=== PATIENT | female | born 1955 | race Caucasian/White ===

== ENCOUNTER 2016-07-17 07:37 | Day surgery (SDC) | payer BC ==
[~2016-07-17] VITALS: Ht 162.6 cm; Wt 76.1 kg
[~2016-07-17 07:37] MED LIST: BENI20TA26; TRAZ100 PO; VENL75 PO; ZOLP1TAB32 PO
[2016-07-17] MEDS ORDERED: SODIUM CHLOR 0.9% 1000 ML INJ 1,000 ML IV SCH (09:30)
[2016-07-17] MEDS ORDERED: ZOLP5TAB3 PO (09:36)
[2016-07-17] MEDS ORDERED: ESTR0.5T PO (09:36)
[2016-07-17] MEDS ORDERED: LOSA25TA PO (09:36)
[2016-07-17] MEDS ORDERED: PROG200C PO (09:36)
[2016-07-17] MEDS ORDERED: OMEP40CA2 PO (09:36)
[2016-07-17] MEDS ORDERED: TRAZ100T4 PO (09:36)
[2016-07-17] MEDS ORDERED: VENL75TA PO (09:36)
[2016-07-17] MEDS ORDERED: REGL10TA5 PO (09:36)
[2016-07-17] MEDS ORDERED: LIDOCAINE 1%/EPINEPHrine 1:100,000 SOLN 20 ML VIAL ONE (10:10)
[2016-07-17 10:50] VITALS: BP 135/78; PULSE 76; RESP 16; TEMP 98.2; O2SAT 99
[2016-07-17 11:05] VITALS: BP 101/59; PULSE 91; RESP 18; O2SAT 95
--- NOTE | 2016-07-17 11:55 | RADRPT ---
EXAM DATE/TIME: 07/17/2016 10:23 This report includes an Addendum and supersedes previous reports for this exam. [facility] COMPARISON: No previous studies available for comparison. INDICATIONS : Diagnostic paracentesis. DEVICE(S): 1.) 6 Fr [id number]-zkhedbzy FLUID: Total volume of 500 cc of cloudy, yellow fluid was removed. Fluid was sent for laboratory ordered studies. MEDICAL HISTORY : Hypertension. Gastroesophageal reflux disease. Diabetes mellitus type 2. Cervical cancer. SURGICAL HISTORY : Tonsillectomy. Breast augmentation. ENCOUNTER: Initial ACUITY: 1 day PAIN SCORE: 0/10 LOCATION: Right upper quadrant PROCEDURE: 2.) EKG and oximetry remained stable throughout the procedure. PROCEDURE : 1. CT-guidance for abdominal paracentesis. 2. Paracentesis. The risks, benefits and alternatives to CT-guided paracentesis were explained to the patient in detai l, lay terms including the risk of bleeding and infection. Oral and written informed consent was obt ained. The patient was scanned to select approach for paracentesis. The skin was prepped in sterile fashion . The skin and subcutaneous tissues were infiltrated with Lidocaine solution. A 6 Bulgarian catheter w as introduced to the peritoneal cavity and ascites was collected. Post procedure scanning reveals no evidence of hematoma or other complication. The patient tolerated the procedure well and left the CT suite in good condition. CONCLUSION: Uncomplicated CT Guided paracentesis. Fluid sent for studies including cytology. Silvino Latham MD FACR on July 17, 2016 at 11:53 Board Certified Radiologist. This report was verified electronically. ADDENDUM: I was asked to clarify the clinical history provided above. According to the history provided the pat ient did not have cervical cancer. Jean Miranda MD on September 25, 2016 at 13:03 Board Certified Radiologist. This report was verified electronically.
[2016-07-17 12:28] LABS: PERITONEAL HISTIOCYTES 25 %; PERITONEAL LYMPHS 38 %; PERITONEAL MESOTHELIAL 6 %; PERITONEAL MONOS 5 %; PERITONEAL POLYS(SEGS) 26 %; PERITONEAL WBC 4413 /MM3 (0-10)
[2016-07-22] MEDS ORDERED: HYDR-3288 PO ×2 (16:22→16:25)
== END 2016-07-17 11:20 | disposition home or self-care (01) ==
LOC: HRAD 07:37 → HRIP 07:38 → HRAD 11:20
PROVIDERS: ATTEND Internal Medicine Gastroenterology
DX: R18.8 Other ascites (principal); E11.9 Type 2 diabetes mellitus without complications; I10 Essential (primary) hypertension; K21.9 Gastro-esophageal reflux disease without esophagitis
CPT/HCPCS: 49083; 82042; 82150; 82945; 83615; 84157; 87070; 87205; 89051; C1729; J3010; J7030

== ENCOUNTER 2016-07-21 15:05 | Inpatient (IN) | payer BC ==
[~2016-07-21] VITALS: Ht 162.6 cm; Wt 77.0 kg
[~2016-07-21 15:05] MED LIST changes: -BENI20TA26; +ESTR0.5T PO; +LOSA25TA PO; +OMEP40CA2 PO; +PROG200C PO; +REGL10TA5 PO; -TRAZ100 PO; +TRAZ100T4 PO; -VENL75 PO; +VENL75TA PO; -ZOLP1TAB32 PO; +ZOLP5TAB3 PO
[2016-07-22] MEDS ORDERED: ROPIVACAINE 0.5% PF INJ 30 ML VIAL NB ONE (10:47)
[2016-07-22 12:00] VITALS: BP 112/69; PULSE 79; RESP 16; TEMP 97.8; O2SAT 98
[2016-07-22] MEDS ORDERED: LACTATED RINGER'S 1000 ML INJ 1,000 ML IV ONE (12:00)
[2016-07-22] MEDS ORDERED: ONDANSETRON HCL 4 MG/2 ML VIAL IV PUSH ONE (12:00)
[2016-07-22] MEDS ORDERED: SUGAMMADEX SODIUM 200 MG/2 ML VIAL IV PUSH ONE ×2 (12:00)
[2016-07-22] MEDS ORDERED: PROPOFOL 200 MG/20 ML AMP IV ONE (12:00)
[2016-07-22] MEDS ORDERED: NORMOSOL R INJ 1,000 ML IV ONE (12:00)
[2016-07-22] MEDS ORDERED: VANCOMYCIN HCL 1000 MG VIAL ONE (12:08)
[2016-07-22] MEDS ORDERED: SODIUM CHLORIDE 0.9% INJ 100 ML ONE (12:08)
[2016-07-22] MEDS ORDERED: ACETAMINOPHEN 1000 MG/100 ML VIAL IV ONE ×2 (12:08→12:10)
[2016-07-22] MEDS ORDERED: SODIUM CHLOR 0.9% 250 ML INJ 250 ML ONE (12:08)
[2016-07-22] MEDS ORDERED: ceFAZolin INJ 1,000 MG VIAL ONE (12:08)
[2016-07-22 12:14] LABS: BASOPHIL % 0.1 % (0.0-2.0); EOSINOPHIL % 0.1 % (0.0-4.0); HEMO FLAGS DIFF FINAL; LYMPH % 7.2 % (9.0-44.0); LYMPHOCYTE # 0.9 TH/MM3 (1.0-4.8); MEAN CELL VOLUME 83.7 FL (80.0-100.0); MEAN CORPUSCULAR HEMOGLOBIN 27.5 PG (27.0-34.0); MEAN CORPUSCULAR HGB CONC 32.9 % (32.0-36.0); MONO % 9.8 % (0.0-8.0); NEUT % 82.8 % (16.0-70.0); PLATELET COUNT 400 TH/MM3 (150-450); RED BLOOD COUNT 4.18 MIL/MM3 (4.00-5.30); RED CELL DISTRIBUTION WIDTH 13.2 % (11.6-17.2); WHITE BLOOD COUNT 13.2 TH/MM3 (4.0-11.0)
[2016-07-22] MEDS ORDERED: ceFAZolin 1,000 MG/NS 100 ML IV SCH ×2 (12:15)
[2016-07-22] MEDS ORDERED: VANCOMYCIN HCL 1000 MG ON-CALL/NS 250 ML IV SCH ×2 (12:15)
[2016-07-22] MEDS ORDERED: ACETAMINOPHEN 1000 MG/100 ML VIAL IV SCH (12:15)
[2016-07-22] MEDS ORDERED: SODIUM CHLORID 0.9% 500 ML IV SCH (12:15)
[2016-07-22] MEDS ORDERED: METOPROLOL TARTRATE 25 MG TAB PO PRN (12:15)
[2016-07-22] MEDS: LACTATED RINGER'S 1000 ML IV SCH ×2 (12:15→15:40)
[2016-07-22] MEDS ORDERED: INSULIN HUMAN REGULAR 1,000 UNITS/10 ML VIAL SQ PRN (12:15)
[2016-07-22 12:32] LABS: BICARBONATE 22.2 MEQ/L (21.0-32.0); POTASSIUM 3.5 MEQ/L (3.5-5.1)
[2016-07-22] MEDS ORDERED: FAMOTIDINE 20 MG/2 ML VIAL ONE (12:59)
[2016-07-22] MEDS ORDERED: MIDAZOLAM HCL 5 MG/5 ML VIAL ONE (12:59)
[2016-07-22] MEDS ORDERED: BUPIVACAINE/EPINEPHRINE 0.25% PF 30 ML VIAL ONE (13:11)
[2016-07-22] MEDS ORDERED: fentaNYL CITRATE 250 MCG/5 ML AMP ONE (13:21)
[2016-07-22] MEDS ORDERED: HYDROmorphone HCL PF 2 MG/ML VIAL ONE (13:21)
--- NOTE | 2016-07-22 16:08 | HHI.PR ---
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
[2016-07-22] MEDS ORDERED: Post-op Orders (for Pharmacy) MISC XX ONE (16:15)
[2016-07-22] MEDS ORDERED: NALOXONE HCL 0.4 MG/ML AMP IV PRN (16:15)
[2016-07-22] MEDS ORDERED: MORPHINE SULFATE 4 MG/ML INJ IV PUSH PRN (16:15)
[2016-07-22] MEDS ORDERED: SODIUM CHLORIDE 0.9% FLUSH 5 ML FLUSH IVF PRN (16:15)
[2016-07-22] MEDS ORDERED: ONDANSETRON HCL 4 MG/2 ML VIAL IV PRN (16:15)
[2016-07-22] MEDS ORDERED: MORPHINE SULFATE 8 MG/ML INJ IV PUSH PRN (16:15)
[2016-07-22] MEDS ORDERED: HYDR-3288 PO (16:25)
[2016-07-22] MEDS ORDERED: METOCLOPRAMIDE HCL 10 MG/2 ML VIAL ONE (16:36)
[2016-07-22] MEDS ORDERED: KETOROLAC TROMETHAMINE 30 MG/ML (IVP) VIAL IVP PRN (17:00)
[2016-07-22] MEDS: METOCLOPRAMIDE HCL 10 MG TAB PO SCH (17:00)
--- NOTE | 2016-07-22 18:58 | EKG ---
Date Performed: 07/22/2016 Time Performed: 11:44:26 PTAGE: 60 years EKG: Sinus rhythm POSSIBLE INFERIOR MYOCARDIAL INFARCTION , PROBABLY OLD BORDERLINE ECG PREVIOUS TRACING : 11/06/2014 20.18 DOCTOR: Arya Moses Interpretating Date/Time 07/22/2016 18:56:24
[2016-07-22] MEDS: SODIUM CHLORIDE 0.9% FLUSH 5 ML FLUSH IVF SCH (20:05)
[2016-07-22] MEDS: LACTATED RINGER'S 1000 ML INJ 1,000 ML IV SCH (20:05)
[2016-07-22] MEDS: traZODone HCL 100 MG TAB PO SCH (20:06)
[2016-07-22] MEDS: ZOLPIDEM TARTRATE 5 MG TAB PO PRN (20:11)
[2016-07-22] MEDS ORDERED: DIATRIZOATE MEGLUM/DIATRIZOATE SOD 9 ML CUP PO ONE (20:30)
[2016-07-22] MEDS ORDERED: Progesterone Micronized 200 MG PO SCH (21:00)
[2016-07-23] VITALS: BP 142/83; PULSE 73; RESP 18; TEMP 96; O2SAT 95
[2016-07-23 04:00] VITALS: BP 149/88; PULSE 81; RESP 16; TEMP 97.2; O2SAT 93
[2016-07-23] MEDS: LACTATED RINGER'S 1000 ML INJ 1,000 ML IV SCH ×3 (05:58→20:22)
[2016-07-23 08:00] VITALS: BP 156/83; PULSE 81; RESP 16; TEMP 96.8; O2SAT 99
[2016-07-23] MEDS: ESTRADIOL 1 MG TAB PO SCH (08:40)
[2016-07-23] MEDS: PANTOPRAZOLE SOD 40 MG DELAYED RELEASE TAB PO SCH (08:41)
[2016-07-23] MEDS: LOSARTAN 25 MG TAB PO SCH (08:41)
[2016-07-23] MEDS: METOCLOPRAMIDE HCL 10 MG TAB PO SCH ×3 (08:41→17:00)
[2016-07-23] MEDS: VENLAFAXINE HCL XR 75 MG CAP PO SCH (08:41)
[2016-07-23] MEDS: SODIUM CHLORIDE 0.9% FLUSH 5 ML FLUSH IVF SCH ×2 (08:41→20:22)
[2016-07-23 09:48] VITALS: O2SAT 96
[2016-07-23] MEDS ORDERED: IOHEXOL 350 MG/ML 10 ML VIAL (for RAD DIAG) IV ONE (10:31)
--- NOTE | 2016-07-23 10:44 | RADRPT ---
EXAM DATE/TIME: 07/23/2016 10:18 [facility] COMPARISON: No previous studies available for comparison. INDICATIONS : Cervical cancer, evaluate for metastatic disease. IV CONTRAST: 96 cc Omnipaque 350 (iohexol) IV ; Cumulative dose for multiple exams. RADIATION DOSE: 17.19 CTDIvol (mGy) ; Combined studies - Thorax/Abdomen/Pelvis MEDICAL HISTORY : Hypertension. Cervical cancer. SURGICAL HISTORY : None. ENCOUNTER: Initial ACUITY: 1 day PAIN SCALE: 0/10 LOCATION: Bilateral chest TECHNIQUE: Volumetric scanning of the chest was performed. Using automated exposure control and adjustment of t he mA and/or kV according to patient size, radiation dose was kept as low as reasonably achievable to obtain optimal diagnostic quality images. FINDINGS: LUNGS: There some consolidation right lower lobe likely passive atelectasis and small areas of consolidation adjacent to the moderate size right pleural effusion also likely passive atelectasis . There is no pneumothorax. No concerning pulmonary nodule is visualized. PLEURA: There is no pleural thickening however there is a moderate-sized right pleural effusion. MEDIASTINUM: The heart and great vessels demonstrate no acute abnormality. There is no mediastinal or hilar lymph adenopathy. Small anterior pericardial lymph node AXILLAE: Within normal limits. No lymphadenopathy. SKELETAL: Within normal limits for patient age. MISCELLANEOUS: The visualized upper abdominal organs demonstrate no acute abnormality. Bilateral breast augmentation CONCLUSION: Moderate-sized right pleural effusion with some adjacent passive atelectasis. No significant pulmonar y nodule or masses are identified Arya Jiménez MD on July 23, 2016 at 10:41 Board Certified Radiologist. This report was verified electronically.
--- NOTE | 2016-07-23 11:25 | RADRPT ---
EXAM DATE/TIME: 07/23/2016 10:18 [facility] COMPARISON: No previous studies available for comparison. INDICATIONS: Carcinomatosis. IV CONTRAST: 96 cc Omnipaque 350 (iohexol) IV; Cumulative dose for multiple exams. ORAL CONTRAST: No oral contrast ingested. RADIATION DOSE: 17.19 CTDIvol (mGy); Combined studies - Thorax/Abdomen/Pelvis MEDICAL HISTORY: Cervical cancer. SURGICAL HISTORY: Left oophorectomy. ENCOUNTER: Initial ACUITY: 1 day PAIN SCALE: 0/10 LOCATION: Bilateral abdomen TECHNIQUE: Volumetric scanning of the abdomen and pelvis was performed. Using automated exposure control and ad justment of the mA and/or kV according to patient size, radiation dose was kept as low as reasonably achievable to obtain optimal diagnostic quality images. FINDINGS: CT scan of the abdomen and pelvis performed with IV contrast. There is free fluid surrounding the li radha and the spleen. There is extensive induration of the mesentery consistent with given diagnosis of abdominal carcinomatosis. There is marked intrahepatic biliary tree dilatation including dilation of the common bile duct exten ding into the head of the pancreas. Common bile duct is up to 13 mm across. It becomes quickly soft tissue density in the lower part of the pancreas. Pancreatic head inferiorly is quite inhomogeneous just at the level of the ampulla correlating for an ampullary mass. There is a 1 cm soft tissue nod ule posterior to the second portion of the duodenum likely necrotic lymph node. The adrenal glands, spleen, kidneys are unremarkable. There is a small enhancing lesion on an outside hepatic MRI which is not clearly defined on the CT sc an. There appears to a curvilinear calcification likely gallstone in the gallbladder fossa. There is mar ked inhomogeneity of the gallbladder fossa; in fact, it is quite ill-defined with the rest of the jami er. The pancreas shows no ductal dilatation, tail atrophy or any other evidence of pancreatic malignancy. There is a small lymph node in the gastrohepatic ligament measuring 1.2 x 1.5 cm across. There is free fluid in the pelvis. Uterus is diffusely heterogeneous. By report the left ovary is s urgically absent. There is a soft tissue mass on the right adnexa likely the right ovary measuring 1 .9 x 3.0 cm across. There is no bowel wall thickening. There is marked degenerative facet disease lower lumbar spine. CONCLUSION: Marked inhomogeneity around the gallbladder fossa with a very indistinct wall almost invading the jami er. With a gallstone and adjacent adenopathy it is concerning for gallbladder wall carcinoma. The c ommon bile duct is dilated all the way to the ampulla leaving little room for a malignancy. Pancreat ic mass would be less likely. Ampullary mass is certainly within the differential. Small lymph node adjacent to the second portion of the duodenum. Free fluid around the liver and the spleen with extensive induration in the mesentery consistent with carcinomatosis. Free fluid extends down into the pelvis. Tiny amount of air within the bladder. Inhomogeneous uterus. Arya Jiménez MD on July 23, 2016 at 10:48 Board Certified Radiologist. This report was verified electronically.
[2016-07-23 12:00] VITALS: BP 151/81; PULSE 77; RESP 16; TEMP 97.6; O2SAT 97
[2016-07-23] MEDS ORDERED: PROPOFOL 200 MG/20 ML AMP IV ONE (12:00)
[2016-07-23] MEDS ORDERED: SODIUM BICARBONATE 8.4% INJ 50 ML ONE (12:34)
[2016-07-23] MEDS ORDERED: SODIUM CHLORIDE 0.9% 20 ML VIAL ONE (12:34)
[2016-07-23] MEDS ORDERED: ceFAZolin INJ 1,000 MG VIAL ONE ×2 (12:35→14:21)
[2016-07-23] MEDS ORDERED: HEPARIN SODIUM - IV 10,000 UNITS/10 ML VIAL ONE (12:35)
[2016-07-23] MEDS ORDERED: LIDOCAINE HCL 1% 50 ML VIAL ONE (12:35)
[2016-07-23] MEDS ORDERED: MIDAZOLAM HCL 2 MG/2 ML VIAL ONE ×2 (15:00→15:25)
[2016-07-23] MEDS ORDERED: FAMOTIDINE 20 MG/2 ML VIAL ONE (15:00)
--- NOTE | 2016-07-23 17:46 | HHI.PR ---
cc: Sy Gifford MD Immediate Post Op Note Procedure Date: Jul 23, 2016 Pre Op Diagnosis: Carcinomatosis Post Op Diagnosis: Carcinomatosis with need for IV chemotherapy Surgeon: Sy Gifford [employer] Psychologist(s): Richard Wong MS3 Procedure: Infusa-port placement with intraoperative use of fluoroscopy Complications: None Specimen(s) removed: None Estimated blood loss: <50 ml Anesthesia: TIVA Drains: None IVF (500 ml) Patient to: PACU Patient Condition: Fair Date/Time of Procedure: SEE SURGICAL CARE RECORD Sy Gifford MD Jul 23, 2016 17:46
[2016-07-23] MEDS ORDERED: *morphine SULFATE 8 MG/ML PERIprocedure ONLY ONE ×2 (17:51→18:16)
--- NOTE | 2016-07-23 18:31 | RADRPT ---
EXAM DATE/TIME: 07/23/2016 18:00 [facility] COMPARISON: CHEST PA & LAT, November 06, 2014, 14:39. INDICATIONS : Evaluate for pneumothorax post port placement. MEDICAL HISTORY : None. SURGICAL HISTORY : None. ENCOUNTER: Initial ACUITY: 1 day PAIN SCORE: Non-responsive. LOCATION: Bilateral chest FINDINGS: Right IJ [id number] is present with tip overlapping the expected region of the SVC. The lungs are clear without infiltrate, nodule, or mass. There is no appreciable pleural effusion for technique. Heart and mediastinum are unremarkable. CONCLUSION: No acute cardiopulmonary disease. Yamilet Pugh MD on July 23, 2016 at 18:29 Board Certified Radiologist. This report was verified electronically.
[2016-07-23] MEDS ORDERED: DO NOT ADM ANY ANTICOAGULANT DRUGS XX PRN (19:30)
[2016-07-23] MEDS: traZODone HCL 100 MG TAB PO SCH (20:19)
[2016-07-23] MEDS: ZOLPIDEM TARTRATE 5 MG TAB PO PRN (20:20)
[2016-07-23 20:51] VITALS: BP 116/64; PULSE 75; RESP 18; TEMP 96.8; O2SAT 93
[2016-07-24 00:38] VITALS: BP 104/60; PULSE 80; RESP 18; TEMP 96.9; O2SAT 95
--- NOTE | 2016-07-24 07:10 | MB ---
cc: AMIE BERMAN DATE OF CONSULTATION 07/23/2016 CHIEF COMPLAINT Abdominal carcinomatosis. PATIENT PROFILE The patient is a 60-year-old white female. She is and has been to the same person for 30 years. She was born in [place]. She has lived in [place] for the past three years. She has no children. She lives with her a dog and a cat. She works as a realtor. Her is retired. The patient stopped smoking at the age of 30. Historically, she has had three or four drinks per day but recently became ill and no longer drinks. HISTORY OF PRESENT ILLNESS The patient is a 60-year-old female whose health was stable until about two months ago when she developed recurrent episodes of nausea and vomiting. She saw Dr. Elena Peña who is her primary care physician. She was treated with omeprazole. The vomiting briefly improved but did not resolve She was then referred to Dr. Bandar Garcia, a supervisor pairing and inspecting who approximately four days ago did an upper endoscopy and found extrinsic compression in the area of the duodenum with only a small opening. The biliary system could not be visualized. She underwent outpatient radiographic studies which I do not have available to me at the present time. She was felt to have a tumor and she was referred to Dr. Anuj Gifford for a laparoscopic biopsy and possible palliative bypass. I have spoken with Dr. Gifford two or three times in the past 24 hours regarding Altagracia Beyer. On July 22, yesterday, the patient had a laparoscopy for what was felt to be a stone in the distal common bile duct, duodenal stenosis abnormal tumor markers and probable intraabdominal tumor. At the time of surgery she was found to diffuse abdominal and omental carcinomatosis. Cytology for ascites showed atypical epithelioid cells suspicious for malignancy. Dr. Nichols, who is an oncologic surgeon, was present at the time of surgery and felt that doing a bypass procedure be hazardous due to a high risk that the anastomosis would not heal leading to leakage and an unsuccessful bypass surgery. The final pathology is pending. The patient had marker studies done on 07/23/2016, CEA is 1.0, CA19-9 is 222 and CA-125 is 251. 'Lytes, BUN and creatinine are normal. There are no liver function tests but I am told that three days ago the liver function tests were normal On 07/22/[address] of the chest, abdomen and pelvis. She has a moderate right-sided pleural effusion with adjacent passive atelectasis. There is no pulmonary nodule or mass. The CAT scan of the abdomen and pelvis shows marked inhomogeneity around the gallbladder fossa with a very indistinct wall possibly invading the liver. There is a gallstone and adjacent adenopathy and the picture was of concern for carcinoma of the gallbladder. The common bile duct was dilated all the way down to the ampulla. There was free fluid around the liver and spleen with extensive induration of the mesentery consistent with carcinomatosis. There was free fluid down into the pelvis. The uterus was inhomogeneous. About 1-2 weeks ago the patient saw her weight inspector, Dr. Jean Vallejo, and had an examination and biopsies and to the best of her knowledge no malignancy was found. I do not have pathology reports. The major problems that the patient has encountered have been approximately 2 months of intermittent vomiting. There has been a 15-pound weight loss. She has had diarrhea but this recently resolved. She has mild upper abdominal discomfort. PAST SURGICAL HISTORY 1. Ovarian cyst and right ovary removed at age 16. 1. Surgery involving the metatarsals of both feet. 2. Tonsillectomy. 3. Breast augmentation 25 years ago. PAST MEDICAL HISTORY 1. History of chronic diarrhea for 2-3 years. 2. Gastroesophageal reflux. 3. Hypertension. 4. Bipolar disorder. MEDICATIONS PRIOR TO ADMISSION 1. Estradiol 0.5 mg daily. 2. Hydrocodone/acetaminophen. 3. Losartan 25 mg a day. 4. Reglan p.r.n. 5. Omeprazole. 6. Progesterone 200 mg p.o. at bedtime. 7. Trazodone 200 mg p.o. at bedtime. 8. Effexor 75 mg p.o. daily. 9. Ambien 5 mg p.o. at bedtime p.r.n. ALLERGIES Nausea, vomiting with CODEINE. FAMILY HISTORY Mother of complications of a stroke at the age of 67. Father of a cardiac arrest at the age of 76. She has two sisters who are living. REVIEW OF SYSTEMS VISION: She has glasses. She has cataracts. HEARING: Fine. CARDIOVASCULAR: No chest pain, palpitations, orthopnea or PND. RESPIRATORY: No fever, night sweats, chills, cough or shortness of breath. She has occasional sweats. GI: Recent diarrhea which has improved and multiple episodes of vomiting with recent studies showing a partial obstruction. 15-pound weight loss. : No dysuria, frequency, hematuria or vaginal bleeding. MUSCULOSKELETAL: No bone pain. NEUROLOGIC: No focal weakness. PHYSICAL EXAMINATION GENERAL: Physical exam reveals a pleasant female in no distress VITAL SIGNS: Blood pressure is 128/80, respiratory rate 16, pulse 85, afebrile. O2 sat is 95%. HEENT: Head is normocephalic. Sclerae and conjunctivae are normal. Oropharynx is unremarkable. LYMPHATICS: No cervical, supraclavicular, axillary or inguinal adenopathy. HEART: Regular rhythm without murmur or gallop. LUNGS: Clear, without rales, wheezes or rhonchi. ABDOMEN: Soft. No hepatosplenomegaly, no masses. The three small areas where the laparoscopic was placed and appear to be already healing. EXTREMITIES: No edema. MUSCULOSKELETAL: No bone pain. NEUROLOGIC: No weakness. NEUROLOGIC: Cognition, affect normal. SKIN: Normal. ASSESSMENT The patient is a 60-year-old female. She has intraabdominal carcinomatosis. The final path is pending. The marker studies are abnormal but are not diagnostic. The CA 19-9 is minimally elevated and, given some degree of biliary dilation, this does not suggest pancreatic cancer, especially without an obvious pancreatic mass. The CA-125 is 251. The elevation would be consistent with peritoneal irritation. I await the pathology to make sure that she does not have a adenocarcinoma arising from the peritoneal cavity similar to ovarian cancer. This is not likely but is important to rule out. Her CAT scan unfortunately suggests that this may be a carcinoma arising from the gallbladder. There is no mention of an ovarian mass. In addition, she had a recent gynecologic evaluation with Dr. Vallejo. If the pathology is consistent with a gallbladder cancer, then I will offer treatment that one uses for carcinoma of the gallbladder. There are a number of regimens and the benefit is modest. At this point one of the more common regimens is cisplatin and gemcitabine. There can be nausea and vomiting associated with cisplatin and she already has problems with nausea and vomiting. Under these circumstances, I would suggest oxaliplatin and gemcitabine. The patient had a port placed today. I will plan on seeing her next week as an outpatient. She can go home tomorrow and by then I will have the final pathology from the omental biopsy. She is unfortunately at risk of gastric outlet obstruction in the immediate future and if this happens, she will require a gastrostomy tube and possibly a jejunostomy as long as the small bowel and large bowel are functioning. Her situation is dire. Responses to gallbladder cancer are modest and on the order of 30% and generally are not very durable. I would hope that this would be other than a gallbladder cancer but I am not optimistic. I await the final path. I have spoken with multiple physicians regarding her care. I spoke with Dr. Radha thapa, her primary care physician Dr. Elena Peña, Dr. Sy Gifford, and Dr. Lorenz who is a radiologist and is related to the patient and will also review the films and speak with me again tomorrow. MD CAMLIA Mazariegos/DEVENDRA /8:25 PM /6:27 AM AMY
[2016-07-24 08:00] VITALS: BP 126/79; PULSE 91; RESP 20; TEMP 98.4; O2SAT 93
[2016-07-24] MEDS: LACTATED RINGER'S 1000 ML INJ 1,000 ML IV SCH (08:10)
[2016-07-24] MEDS: METOCLOPRAMIDE HCL 10 MG TAB PO SCH (08:18)
[2016-07-24] MEDS: SODIUM CHLORIDE 0.9% FLUSH 5 ML FLUSH IVF SCH (08:18)
[2016-07-24] MEDS: ESTRADIOL 1 MG TAB PO SCH (08:18)
[2016-07-24] MEDS: PANTOPRAZOLE SOD 40 MG DELAYED RELEASE TAB PO SCH (08:18)
[2016-07-24] MEDS: LOSARTAN 25 MG TAB PO SCH (08:18)
[2016-07-24] MEDS: VENLAFAXINE HCL XR 75 MG CAP PO SCH (08:18)
--- NOTE | 2016-07-24 11:50 | HHI.DS ---
Discharge Summary Admission Date Jul 23, 2016 at 17:49 Discharge Date: Jul 24, 2016 Admitting Diagnosis Brief History This is a 60 year old female s/p Diagnostic laparoscopy; Omental biopsy with frozen section; and excision portion falciform ligament and peritoneal wall with port placement. CBC/BMP: 07/22/16 1200 07/22/16 1200 Significant Findings Laboratory Tests Test 07/22/16 07/23/16 12:00 05:36 White Blood Count 13.2 TH/MM3 (4.0-11.0) Hemoglobin 11.5 GM/DL (11.6-15.3) Neutrophils (%) (Auto) 82.8 % (16.0-70.0) Lymphocytes (%) (Auto) 7.2 % (9.0-44.0) Monocytes (%) (Auto) 9.8 % (0.0-8.0) Neutrophils # (Auto) 11.0 TH/MM3 (1.8-7.7) Lymphocytes # (Auto) 0.9 TH/MM3 (1.0-4.8) Monocytes # (Auto) 1.3 TH/MM3 (0-0.9) Creatinine 1.06 MG/DL (0.50-1.00) Estimat Glomerular Filtration 53 ML/MIN (>89) Rate CA 19-9 Antigen 222.2 U/ML (0.0-35.0) CA 125 Antigen 251.2 U/ML (0.0-30.2) PE at Discharge Alert and awake in good spirits Cardio: RRR Resp: CTAB Abd: soft; tender at lap sites; lap sites c/d/i Port site with steri strips Hospital Course This is a 60 year old female s/p Diagnostic laparoscopy; Omental biopsy with frozen section; and excision portion falciform ligament and peritoneal wall with port placement. The patient is able to tolerate a full liquid diet. Her pain was controlled using oral pain medications. She will follow up with Dr. Gifford next week for pathology results. Pt Condition on Discharge: Good Discharge Disposition: Discharge Home Discharge Instructions DIET: Follow Instructions for: Full Liquid Diet Activities you can perform: See Additionl Instruction Other Activity Instructions: Okay to shower Pat incision dry No heavy pulling pushing or lifting Jazmin De La Fuente Jul 24, 2016 11:50
--- NOTE | 2016-07-24 20:22 | PD.ONC.PN ---
Subjective Subjective Remarks patient seen this am although note being place in chart this evening. Objective Data Date Time Temp Pulse Resp B/P Pulse Ox O2 Delivery O2 Flow Rate FiO2 07/24/16 08:00 98.4 91 20 126/79 93 07/24/16 00:38 96.9 80 18 104/60 95 07/23/16 20:51 96.8 75 18 116/64 93 07/24/16 07/24/16 07/24/16 07:00 15:00 23:00 Intake Total 360 ml Balance 360 ml Result Diagram: 07/22/16 1200 07/22/16 1200 Objective Remarks GENERAL: Well-nourished, well-developed patient. SKIN: Warm and dry. HEAD: Normocephalic. EYES: No scleral icterus. No injection or drainage. NECK: Supple, trachea midline. No JVD or lymphadenopathy. LYMPHATIC: No adenopathy. CARDIOVASCULAR: Regular rate and rhythm without murmurs. RESPIRATORY: Breath sounds equal bilaterally. No accessory muscle use. GASTROINTESTINAL: Abdomen soft, EXTREMITIES: No cyanosis, or edema. MUSCULOSKELETAL: Adequate muscle tone. NEUROLOGICAL: No obvious focal deficit. Awake, alert, and oriented x3. PSYCHIATRIC: Appropriate mood and affect; insight and judgment normal. Assessment/Plan Assessment 1: patient recovering well from surgery and for discharge today ( has taken place). I again discussed situation and she understands what is going on telling me she has had a "good life". I spoke with Angy Loera from pathology and she will do special stains to rule out peritoneal carcinomatosis from ovarian rest cells. I have spoken with Dr. 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 The patient will primarily use liquids or soft food as she has a near obstruction. I will see her in the middle of next week and arrangements in place. Osvaldo Bermudez MD Jul 24, 2016 20:22
--- NOTE | 2016-07-26 21:06 | MP ---
cc: SY GIFFORD M.D., MICHAEL R. M.D. WEISS, RICHARD DHAND, ARUN M.D. DATE OF SURGERY: 07/22/2016 PREOPERATIVE DIAGNOSIS: Choledocholithiasis with suspicion for cholangiocarcinoma. POSTOPERATIVE DIAGNOSIS: Choledocholithiasis with carcinomatosis. OPERATION: 1. Diagnostic laparoscopy. 2. Biopsy of omental tissue with excision of small portion of the peritoneum and falciform ligament with frozen section. ANESTHESIA General endotracheal anesthesia. SURGEON: Sy Gifford MD. MEDICAL SECRETARY RECEPTIONIST: Rick Walls MD. ESTIMATED BLOOD LOSS: Less than 10 mL. FLUIDS: 1500 mL crystalloid. DESCRIPTION OF THE PROCEDURE IN DETAIL: The patient was taken to the operating room and placed on the operating table in the supine position. After an adequate level of general endotracheal anesthesia was achieved, the abdomen was prepped and draped in usual fashion. Time-out was taken confirming the correct patient, site and procedure to be performed. Skin and subcutaneous tissue was infiltrated with local anesthetic and an incision made above the umbilicus. Dissection was carried down and the fascia was then opened sharply as well. The posterior fascia was opened and the peritoneal cavity directly visualized. Ascitic fluid was noted and this was aspirated. A balloon trocar was inserted and the balloon inflated. The abdomen was insufflated. Upon entering the abdomen, the upper abdomen was visualized and the patient was seen to have carcinomatosis. At this point, two other 5 mm trocars were placed with one in the upper midline and the second in the right upper quadrant. Both of these entered the abdominal cavity under direct vision uneventfully. These were used to obtain a piece of omentum which had tumor within it. This was excised with the harmonic scalpel, placed into an EndoCatch device and removed via the umbilical port while observing via the upper 5 mm trocar site. This was submitted for frozen section analysis. The pathologist reported back while we were waiting that a poorly differentiated neoplasm favoring carcinoma was noted. At this point, additional specimens were obtained for fixed analysis. A small piece of the peritoneum was excised with the harmonic scalpel and submitted as well as a small piece off of the falciform ligament. The harmonic scalpel was utilized for this as well. Both were submitted in formalin for fixed analysis. All three sites were reexamined and were seen to be hemostatic. At this point, Dr. Walls had come into the room and while the peritoneum was being excised, the undersigned inquired for management. He recommended that no bypass be performed and no further manipulation until final diagnosis was obtained. There was significant concern that any anastomoses or manipulation performed in the face of carcinomatosis would result in nonhealing or an anastomotic leakage, and given the fact that the patient was not in dire straits with acute obstruction at this point, further manipulation was felt to be hazardous. At this point, insufflation was discontinued after aspirating all malignant ascites and the upper abdominal trocars were removed under direct vision. No bleeding was noted from the trocar sites during desufflation. The supraumbilical port was then removed and the fascia closed with [id number] and simple interrupted 0 Vicryl suture. All three trocar sites were then closed with 4-0 Vicryl suture in an interrupted buried fashion and they were dressed with Steri-Strips. The patient was extubated and taken back to the recovery room in stable condition. Sponge and needle counts were reported be correct. She remained hemodynamically stable throughout the procedure. MD GUILLERMO Mauricio/ABHI /8:43 PM /8:59 PM MTDD
--- NOTE | 2016-07-26 21:12 | MP ---
cc: SY GIFFORD M.D., RICHARD DATE OF SURGERY: 07/23/2016. PREOPERATIVE DIAGNOSIS: Carcinomatosis with consideration for IV chemotherapy. POSTOPERATIVE DIAGNOSIS: Carcinomatosis with consideration for IV chemotherapy. OPERATION: Infusaport placement with intraoperative use of fluoroscopy. ANESTHESIA: TIVA. SURGEON: Sy Gifford MD. ESTIMATED BLOOD LOSS Less than 50 mL. FLUIDS: 500 mL crystalloid. COMPLICATIONS: None. DRAINS: None. SPECIMEN: None. DESCRIPTION OF THE PROCEDURE IN DETAIL: The patient was taken to the operating room and placed on the operating table in the supine position with a roll between the shoulder blades. The patient was given IV sedation and the chest and neck were prepped and draped bilaterally. Time-out was taken confirming the correct patient. site and procedure to be performed. The right subclavian region was infiltrated with local anesthetic and the patient was placed in Trendelenburg position. Multiple passes were made to access the subclavian vein and the vein could not be accessed. This site was abandoned and the right neck was then infiltrated with local anesthetic. After three or four passes, the right internal jugular vein was accessed. A guidewire was passed and confirmed by fluoroscopy to be within the superior vena cava. At this point, an Infusaport pocket was created inferior to the clavicle. This was infiltrated with local anesthetic, incised and the pocket created with electrocautery. When the pocket was large enough to accommodate the port, a tunneling device was brought from the exit site of the wire to the port pocket and the catheter pulled through utilizing the tunnel. At this point, an introducer and sheath were passed over the guidewire and seen to pass into the superior vena cava. The guidewire and introducer were removed and the catheter passed down the sheath. The sheath was peeled away and the catheter withdrawn to a level such that the catheter was in the superior vena cava. A hub and port were then placed on the catheter after it was trimmed to length and attached to the port. The port was placed into the pocket and accessed with a Brown needle. Good blood return was achieved and the port was easily flushed. The port was then fixed to the chest wall with two 2-0 Prolene sutures. With hemostasis assured, the port pocket and the percutaneous puncture site in the neck were closed with interrupted buried 3-0 Vicryl suture. The skin was closed at the port pocket with 5-0 PDS in a running subcuticular fashion. Steri-Strips were used to dress the incisions. The patient was taken back to the recovery room in stable condition. Sponge, needle and instrument counts were reported be correct. Stat chest x-ray demonstrated no evidence of pneumothorax. The patient tolerated procedure well. This was then MD GUILLERMO Mauricio/ABHI /8:49 PM /9:07 PM MTDDale
== END 2016-07-24 11:11 | disposition home or self-care (01) | DRG 375 ==
LOC: INTOOBSV 07-22 10:54 → HSDI 07-22 10:54 → N07A 07-22 18:37 → OBSVTOIN 07-23 17:49
PROVIDERS: ADMIT Surgery Trauma Surgery; ATTEND Surgery Trauma Surgery
PROC: 0WBH4ZX Excision of Retroperitoneum, Percutaneous Endoscopic Approach, Diagnostic (ICD-10-PCS; principal; 2016-07-22 13:30)
PROC: 0JH60XZ Insertion of Tunneled Vascular Access Device into Chest Subcutaneous Tissue and Fascia, Open Approach (ICD-10-PCS; 2016-07-23)
PROC: 02HV33Z Insertion of Infusion Device into Superior Vena Cava, Percutaneous Approach (ICD-10-PCS; 2016-07-23)
PROC: B518ZZA Fluoroscopy of Superior Vena Cava, Guidance (ICD-10-PCS; 2016-07-23)
DX: C78.6 Secondary malignant neoplasm of retroperitoneum and peritoneum (principal); R18.0 Malignant ascites; C23 Malignant neoplasm of gallbladder; J90 Pleural effusion, not elsewhere classified; K31.5 Obstruction of duodenum; I10 Essential (primary) hypertension; K21.9 Gastro-esophageal reflux disease without esophagitis; J98.11 Atelectasis; K80.70 Calculus of gallbladder and bile duct without cholecystitis without obstruction; F31.9 Bipolar disorder, unspecified; Z87.891 Personal history of nicotine dependence
CPT/HCPCS: 71010; 71260; 74177; 76000; 80048; 82378; 85025; 86301; 86304; 88305; 88313; 88331; 88341; 88342; 93005; 94150; C1788; G0378; J0131; J0690; J1170; J1644; J2250; J2270; J2405; J2765; J2795; J3010; J3370; J7050; J7120; Q9963; Q9967

== ENCOUNTER 2016-07-28 09:08 | Inpatient (IN) | payer BC ==
[~2016-07-28 09:08] MED LIST changes: +HYDR-3288 PO
[2016-07-28 09:35] LABS: MEAN CORPUSCULAR HEMOGLOBIN 27.8 PG (27.0-34.0); MEAN CORPUSCULAR HGB CONC 33.1 % (32.0-36.0); PLATELET COUNT 490 TH/MM3 (150-450); RED BLOOD COUNT 4.17 MIL/MM3 (4.00-5.30); RED CELL DISTRIBUTION WIDTH 13.9 % (11.6-17.2); REVIEW FLAG FINAL; WHITE BLOOD COUNT 14.1 TH/MM3 (4.0-11.0)
[2016-07-28 09:46] LABS: APTT (PATIENT) 31.7 SEC (24.3-30.1); PROTHROMBIN TIME - PATIENT 11.4 SEC (9.8-11.6)
[2016-07-28 10:17] LABS: INDIRECT BILIRUBIN 0.7 MG/DL (0.0-0.8); TOTAL BILIRUBIN ADULT 3.1 MG/DL (0.2-1.0)
[2016-07-28 11:06] VITALS: BP 117/73; PULSE 101; RESP 18; TEMP 97; O2SAT 97
--- NOTE | 2016-07-28 12:36 | RADRPT ---
EXAM DATE/TIME: 07/28/2016 11:02 [facility] COMPARISON: No previous studies available for comparison. EXTERNAL COMPARISON : [facility], [facility], July 14, 2016[facility] Ultrasound abdomen, 07/13/2016. INDICATIONS : Evaluate for ascites. MEDICAL HISTORY : Hypertension. Gastroesophageal reflux disease. cervical cancer. Diabetic. SURGICAL HISTORY : Tonsillectomy. Breast augmentation. ENCOUNTER: Subsequent ACUITY: 1 day PAIN SCORE: 0/10 LOCATION: Upper and lower abdomen. AREA EVALUATED: Four quadrant and midline abdomen. FINDINGS: Imaging of the abdomen and pelvis was performed to evaluate for ascites for possible paracentesis. T here is only a very small volume of fluid adjacent to the liver in the right upper quadrant. No fluid is visualized in the remaining quadrants. CONCLUSION: There is only a small volume of fluid in the right upper quadrant adjacent to the liver. The remainin g quadrants demonstrate no fluid. There currently is not enough for safe therapeutic paracentesis. The findings were discussed with the patient. Jean Miranda MD on July 28, 2016 at 12:33 Board Certified Radiologist. This report was verified electronically.
[2016-07-28 16:46] VITALS: BP 123/68; PULSE 101; RESP 19; TEMP 96.7; O2SAT 96
[2016-07-28] MEDS ORDERED: SODIUM CHLORIDE FLUSH PRN IVF (17:30)
[2016-07-28] MEDS: SODIUM CHLOR 0.9% 1000 ML INJ 1,000 ML IV SCH (17:30)
[2016-07-28] MEDS ORDERED: LOSA100T PO (19:51)
[2016-07-28] MEDS ORDERED: VENL150T PO (19:56)
[2016-07-28 20:00] VITALS: BP 119/68; PULSE 99; RESP 16; TEMP 97.2; O2SAT 96
[2016-07-28] MEDS ORDERED: PILL SPLITTER OTHER PRN (20:45)
[2016-07-28] MEDS: SODIUM CHLORIDE FLUSH BID IVF SCH (21:00)
[2016-07-28] MEDS: METOCLOPRAMIDE HCL 10 MG/2 ML VIAL IV SCH (21:24)
[2016-07-28] MEDS: MORPHINE SULFATE 4 MG/ML INJ IV PRN (21:25)
[2016-07-28] MEDS: traZODone HCL 100 MG TAB PO SCH (22:28)
[2016-07-28] MEDS: ZOLPIDEM TARTRATE 10 MG TAB PO PRN (22:28)
--- NOTE | 2016-07-28 22:28 | RADRPT ---
EXAM DATE/TIME: 07/28/2016 22:07 [facility] COMPARISON: CT ABDOMEN & PELVIS W CONTRAST, July 23, 2016, 10:18. INDICATIONS : Rule out bowel obstruction; check for metastatic disease. ORAL CONTRAST: No oral contrast ingested. RADIATION DOSE: 13.91 CTDIvol (mGy) MEDICAL HISTORY : Gastroesophageal reflux disease. Hypertension. Cervical cancer. SURGICAL HISTORY : Breast augmentation. ENCOUNTER: Subsequent ACUITY: 2 days PAIN SCALE: 5/10 LOCATION: Bilateral lower quadrant TECHNIQUE: Volumetric scanning of the abdomen and pelvis was performed. Using automated exposure control and ad justment of the mA and/or kV according to patient size, radiation dose was kept as low as reasonably achievable to obtain optimal diagnostic quality images. FINDINGS: Omental caking and ascites again noted. The ascites is worse, currently moderate. Nothing organized. I don't see an ovarian mass. Celiac lymph nodes measuring up to 15 mm in size are again noted. No obstruction of the gastrointestinal tract. Very vague margins again noted of the gallbladder. Several stones in between 5 and 15 mm in size are present. Biliary distention again noted, not significantly changed. PEL G. of this is uncertain. I do n't clearly see a mass. Spleen and adrenal glands are normal. Small peripelvic cysts are again seen of both kidneys. Moderate to large right pleural effusion seen, larger in the interim. CONCLUSION: 1. Omental caking compatible with metastatic disease. This is an unusual manifestation of cervical ca rcinoma, more commonly seen with ovarian or gastrointestinal tract primaries. I don't clearly see a m ass of the GI tract or either ovary. 2. Moderate ascites, worse. Also increased size of a right pleural effusion, moderate to large. 3. Persistent vague visualization of the gallbladder. Stones are present. Cholecystitis and gallbladd er mass would be in the differential. 4. Unclear etiology of persistent biliary dilatation but ampullary mass and small pancreatic head mas s in the region of the distal duct remain in the differential. Jean Olson MD on July 28, 2016 at 22:16 Board Certified Radiologist. This report was verified electronically.
--- NOTE | 2016-07-28 23:13 | MB ---
cc: AMIE BERMAN M.D. DATE OF CONSULTATION: 07/28/2016 REASON FOR CONSULTATION: Abdominal carcinomatosis with abdominal distension and rising bilirubin. PATIENT PROFILE The patient is a 60 year-old white female. She is . She was born in [place]. She has lived in [place], [place] for the past 3 years. She has no children. She works as a realtor. Her is retired. The patient stopped smoking at the age of 30. In the past she had had 3-4 drinks per day but no longer drinks this because of illness. HISTORY OF PRESENT ILLNESS The patient is a 60 year-old female who was well until two months ago when she developed recurrent episodes of nausea and vomiting. She was referred to Dr. Jesus Garcia, who is a site auditor and approximately ten days ago underwent upper endoscopy and was found to have extrinsic compression in the area of the duodenum with only a small opening. The biliary system could not be visualized. There was no esophageal or gastric mass. Outpatient radiographic studies suggested the possibility of tumor in the upper abdominal area. On 07/22/2016 the patient had a diagnostic laparoscopy and biopsy of omental tissue with excision of a small portion of the peritoneum and falciform ligament. At the time of surgery she had a mild amount of ascites. She had diffuse intra-abdominal carcinomatosis. She had partial compression of the duodenum. Bypass surgery was not done as there was a concern that if a gastrojejunostomy was done there would be a leak due to the presence of tumor involving the bowel preventing the anastomotic site from healing. 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 I requested that special stains be done to determine whether this could possibly be a serous ovarian carcinoma. The stains were negative. The differential was suggestive of a cancer from the stomach, esophagus, or hepatobiliary and pancreas. Of note, no gastric cancer was identified at the time of upper endoscopy and the CT scans that the patient had did not show a gastric mass. On 07/22/[address] a [address] scan of the abdomen and pelvis which showed marked inhomogeneity around the gallbladder fossa with a very indistinct wall. There was a gallstone present. Common bile duct was dilated all the way down to the ampulla. There are small lymph nodes in the second portion of the duodenum. LABORATORY DATA: Laboratory tests on 07/23/2016 include a CA19-9 of 222. CA-125 of 251, and CEA of 1. Currently on 07/28, total bilirubin is 3.1, indirect is 2.4, alk phos is 902, albumin is 2.2, hemoglobin 11.6, hematocrit 35, white count 14,000, platelets 490,000. An abdominal ultrasound was done today and there is no significant amount of fluid. PAST SURGICAL HISTORY 1. 07/22/2016, diagnostic laparoscopy and biopsy of omental tissue with excision of small portion of the peritoneum and falciform ligament revealing poorly differentiated adenocarcinoma. 2. 07/23/2016 [id number] placement right upper chest involving right internal jugular vein. 3. Ovarian cyst and right ovary removed at age 16. 4. Surgery involving the metatarsals of both feet. 5. Tonsillectomy. 6. Breast augmentation PAST MEDICAL HISTORY 1. Chronic diarrhea for 2-3 years. 2. Gastroesophageal reflux. 3. Hypertension. 4. Bipolar disorder. 5. Intra-abdominal carcinomatosis as described above. MEDICATIONS 1. Estradiol. 2. Hydrocodone Acetaminophen. 3. Losartan 4. Reglan 5. Omeprazole. 6. Trazodone 110 milligrams p.o. hs. 7. Venlafaxine Extended Release 150 milligrams daily. 8. Ambien. ALLERGIES CODEINE. Caused nausea and vomiting. FAMILY HISTORY Mother of complications of a stroke at 67. Father of a cardiac arrest at 76. The patient has two sisters who are living. REVIEW OF SYSTEMS: The patient has glasses. She has cataracts. Hearing is fine. No chest pain, palpitations, orthopnea, PND, claudication. RESPIRATORY: Minimal exertional shortness of breath. GASTROINTESTINAL: Occasional episode of vomiting, minimal stool. Abdominal distension, slight upper abdominal discomfort, 15 pound weight loss. GENITOURINARY: No dysuria, frequency, hematuria, vaginal bleeding. MUSCULOSKELETAL: No bone pain. NEUROLOGIC: No focal weakness. PHYSICAL EXAMINATION: Reveals a pleasant female, who does not appear ill except for abdominal distension. She is afebrile, pulse 100, respiratory rate 19, blood pressure 125/70. O2 sat 96%. HEAD: Normocephalic. Sclera and conjunctivae are normal. Oropharynx unremarkable. There is no cervical, supraclavicular, axillary or inguinal adenopathy. HEART: Regular rhythm. LUNGS: Clear. ABDOMEN: Markedly distended and tympanic, minimal discomfort. EXTREMITIES: trace edema. MUSCULOSKELETAL: No bone pain. NEUROLOGIC: No weakness. Cognition, affect normal. SKIN: Normal. The patient has an [id number] in place, upper chest. ASSESSMENT The patient is a 60 year-old female. 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 This does not appear to be of ovarian origin. She has had upper endoscopy and nothing was found in the esophagus or stomach. She does not have an obvious pancreatic mass. The two major concerns I have now are: 1. Bowel obstruction possibly gastric outlet obstruction given the abdominal distension and location of the . 2. Increasing biliary obstruction. PLAN 1. I have ordered a CAT scan of the abdomen and pelvis without contrast to be performed tonight. 2. Her surgeon has scheduled her for evaluation of the biliary tract and possible extraction of a stone if present or catheterization and drainage of the biliary tract should there be overt obstruction. If she is obstructed then she will either require a gastrojejunostomy or a gastrostomy for drainage and a jejunostomy for feeding. It will be very difficult to treat her with chemotherapy with a gastrostomy tube and the jejunostomy and at that point I am likely to recommend Hospice. She is overwhelmed and the upcoming evaluation was discussed with her but not all of the consequences. MD CAMILA Mazariegos/JERRY /8:39 PM /10:45 PM AMY
[2016-07-29] VITALS: BP 135/76; PULSE 107; RESP 18; TEMP 97.6; O2SAT 93
[2016-07-29] MEDS: SODIUM CHLOR 0.9% 1000 ML INJ 1,000 ML IV SCH ×3 (04:51→23:30)
[2016-07-29] MEDS: METOCLOPRAMIDE HCL 10 MG/2 ML VIAL IV SCH ×3 (04:52→19:42)
[2016-07-29 07:15] LABS: ALKALINE PHOSPHATASE 913 U/L (45-117); ALT (GPT) 33 U/L (10-53); ANION GAP 11 MEQ/L (5-15); AST (GOT) 52 U/L (15-37); BICARBONATE 22.6 MEQ/L (21.0-32.0); BLOOD UREA NITROGEN 8 MG/DL (7-18); CHLORIDE 105 MEQ/L (98-107); GLOMERULAR FILTRATION RATE 116 ML/MIN (>89); POTASSIUM 3.6 MEQ/L (3.5-5.1); SODIUM (NA) 139 MEQ/L (136-145); TOTAL BILIRUBIN ADULT 2.4 MG/DL (0.2-1.0)
[2016-07-29] MEDS: SODIUM CHLORIDE FLUSH BID IVF SCH ×2 (07:35→19:42)
[2016-07-29 08:00] VITALS: BP 142/71; PULSE 115; RESP 19; TEMP 98.2; O2SAT 94
[2016-07-29] MEDS: VENLAFAXINE HCL XR 75 MG CAP PO SCH (09:00)
[2016-07-29] MEDS: LOSARTAN 50 MG TAB PO SCH (09:51)
[2016-07-29] MEDS: ESTRADIOL 1 MG TAB PO SCH (09:52)
[2016-07-29] MEDS: PANTOPRAZOLE SODIUM 40 MG VIAL IV PUSH SCH (09:57)
[2016-07-29 12:00] VITALS: BP 133/68; PULSE 108; RESP 19; TEMP 97.3; O2SAT 94
--- NOTE | 2016-07-29 14:39 | MH ---
cc: VENICE CHAVEZ M.D. DATE OF ADMISSION: 07/28/2016 REASON FOR ADMISSION Elevated liver function tests with progressive disease and concern for common duct occlusion. HISTORY OF PRESENT ILLNESS The patient is a 60-year-old female who had a recurrent episode of nausea and vomiting and underwent upper endoscopy and was found to have extrinsic compression of the second portion of the duodenum. The undersigned had patient undergo a diagnostic laparoscopy last Wednesday with severe carcinomatosis throughout the abdomen. Final studies are pending. The patient was admitted at this time for consideration of percutaneous transhepatic cholangiography to alleviate her elevated liver function tests. The patient is not having significant pain at this time and is vomiting occasionally but not every meal. PHYSICAL EXAMINATION GENERAL: A female in no distress. VITAL SIGNS: BP 119/68, pulse 99, respirations 16, temperature 97.2. HEENT: Sclera are anicteric. CHEST: Clear. CARDIAC: Regular rate rhythm. ABDOMEN: Soft. Steri-Strips are intact without drainage or erythema. EXTREMITIES: Pulses are present. NEUROLOGIC: Nonfocal. LABORATORY DATA Laboratory values demonstrate WBC of 14.1, hemoglobin/hematocrit 11.6 and 35.0. Chemistries demonstrate total bili of 3.1, AST 55, ALT 40, alkaline phosphatase 902. IMAGING DATA CT scan of the abdomen and pelvis performed 07/28/2016 demonstrates omental caking, moderate ascites with right pleural effusion and vague visualization of the gallbladder. 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 An Zmviks-A-Hkuf was placed on July 23 in anticipation of possible chemotherapy. Dr. Bermudez has seen the patient regarding this and we had a long discussion regarding her management. I have discussed with Dr. Garcia attempting to get the patient to [facility] to have a duodenal stent placed to keep her GI tract unobstructed. We will attempt to arrange for this as the patient is not a candidate for PTC at this time. MD GUILLERMO Mauricio/BT /2:04 PM /2:22 PM
[2016-07-29] MEDS: MORPHINE SULFATE 4 MG/ML INJ IV PRN (19:42)
[2016-07-29] MEDS: traZODone HCL 100 MG TAB PO SCH (19:42)
[2016-07-29 20:00] VITALS: BP 165/81; PULSE 101; RESP 16; TEMP 98.7; O2SAT 93
--- NOTE | 2016-07-29 21:09 | PD.ONC.PN ---
Subjective Subjective Remarks sad. mild abdominal discomfort Objective Data Date Time Temp Pulse Resp B/P Pulse Ox O2 Delivery O2 Flow Rate FiO2 07/29/16 12:00 97.3 108 19 133/68 94 07/29/16 08:00 98.2 115 19 142/71 94 07/29/16 00:00 97.6 107 18 135/76 93 07/29/16 07/29/16 07/29/16 07:00 15:00 23:00 Intake Total 673 ml 425 ml Balance 673 ml 425 ml Result Diagram: 07/28/16 0926 07/29/16 0625 Laboratory Results Laboratory Tests Test 07/29/16 06:25 Sodium Level 139 MEQ/L Potassium Level 3.6 MEQ/L Chloride Level 105 MEQ/L Carbon Dioxide Level 22.6 MEQ/L Anion Gap 11 MEQ/L Blood Urea Nitrogen 8 MG/DL Creatinine 0.54 MG/DL Estimat Glomerular Filtration 116 ML/MIN Rate Random Glucose 87 MG/DL Calcium Level 7.7 MG/DL Total Bilirubin 2.4 MG/DL Aspartate Amino Transf 52 U/L (AST/SGOT) Alanine Aminotransferase 33 U/L (ALT/SGPT) Alkaline Phosphatase 913 U/L Total Protein 6.0 GM/DL Albumin 1.8 GM/DL Imaging Studies Last 48 hours Impressions Abdomen/Pelvis CT 07/28/16 0000 Signed Impressions: Service Date/Time: Thursday, July 28, 2016 22:07 - CONCLUSION: 1. Omental caking compatible with metastatic disease. This is an unusual manifestation of cervical carcinoma, more commonly seen with ovarian or gastrointestinal tract primaries. I don't clearly see a mass of the GI tract or either ovary. 2. Moderate ascites, worse. Also increased size of a right pleural effusion, moderate to large. 3. Persistent vague visualization of the gallbladder. Stones are present. Cholecystitis and gallbladder mass would be in the differential. 4. Unclear etiology of persistent biliary dilatation but ampullary mass and small pancreatic head mass in the region of the distal duct remain in the differential. Jean Olson MD Abdomen Ultrasound 07/28/16 0000 Signed Impressions: Service Date/Time: Thursday, July 28, 2016 11:02 - CONCLUSION: There is only a small volume of fluid in the right upper quadrant adjacent to the liver. The remaining quadrants demonstrate no fluid. There currently is not enough for safe therapeutic paracentesis. The findings were discussed with the patient. Jean Miranda MD Administered Medications Medications (Trade) Dose Ordered Sig/Mickey Route PRN Reason Start Time Stop Time Status Last Admin Dose Admin Sodium Chloride (NS 1000 ml Inj) 1,000 ml @ 100 mls/hr Q10H IV 07/28/16 17:30 07/29/16 09:57 Morphine Sulfate (Morphine Inj) 3 mg Q2H PRN IV PAIN SCALE 1 TO 10 07/28/16 17:30 07/29/16 19:42 IV Flush (NS Flush) 2 ml BID IVF 07/28/16 21:00 07/29/16 19:42 Estradiol (Estradiol) 0.5 mg DAILY PO 07/29/16 09:00 07/29/16 09:52 Losartan Potassium (Cozaar) 100 mg DAILY PO 07/29/16 09:00 07/29/16 09:51 Metoclopramide HCl (Reglan Inj) 10 mg Q8H IV 07/28/16 21:00 07/29/16 19:42 Pantoprazole Sodium (Protonix Inj) 40 mg DAILY IV PUSH 07/29/16 09:00 07/29/16 09:57 Trazodone HCl (Desyrel) 200 mg HS PO 07/28/16 21:00 07/29/16 19:42 Venlafaxine HCl (Effexor Xr) 150 mg DAILY PO 07/29/16 09:00 07/29/16 09:00 Zolpidem Tartrate (Ambien) 10 mg HS PRN PO INSOMNIA 07/28/16 21:00 07/28/16 22:28 Objective Remarks GENERAL: tired and mild abd distention SKIN: Warm and dry. HEAD: Normocephalic. EYES: No scleral icterus. No injection or drainage. NECK: Supple, trachea midline. No JVD or lymphadenopathy. LYMPHATIC: No adenopathy. CARDIOVASCULAR: Regular rate and rhythm without murmurs. RESPIRATORY: decreased sounds at base GASTROINTESTINAL: Abdomen soft, mild distention and tympanic. EXTREMITIES: No cyanosis, or edema. MUSCULOSKELETAL: Adequate muscle tone. NEUROLOGICAL: No obvious focal deficit. Awake, alert, and oriented x3. PSYCHIATRIC: sad Assessment/Plan Assessment 1: ct of abdomen reviewed and no bowel obstruction. I suspect she will develop duodenal obstruction in near future based on findings on upper endoscopy and frequent vomiting at home. I have spoken with Dr. Garcia and with Dr. Gifford and arrangements are being made for placement of a duodenal stent which I understand will take place in [place]. the bilirubin is stable and can evaluate for biliary drainage later. Will plan on chemotherapy next week but am not optimistic about result given histology. If not successful will consult hospice. Osvaldo Bermudez MD Jul 29, 2016 21:09
[2016-07-29] MEDS: ZOLPIDEM TARTRATE 10 MG TAB PO PRN (23:18)
[2016-07-30] VITALS: BP_SYST 163; PULSE 104; RESP 16; TEMP 98.8; O2SAT 94
[2016-07-30] MEDS: METOCLOPRAMIDE HCL 10 MG/2 ML VIAL IV SCH (05:16)
[2016-07-30 08:00] VITALS: BP 140/80; PULSE 119; RESP 17; TEMP 97.6; O2SAT 95
[2016-07-30] MEDS: PANTOPRAZOLE SODIUM 40 MG VIAL IV PUSH SCH (09:00)
[2016-07-30] MEDS: SODIUM CHLORIDE FLUSH BID IVF SCH (09:00)
[2016-07-30] MEDS: VENLAFAXINE HCL XR 75 MG CAP PO SCH (09:00)
[2016-07-30] MEDS: SODIUM CHLOR 0.9% 1000 ML INJ 1,000 ML IV SCH (09:30)
[2016-07-30] MEDS: LOSARTAN 50 MG TAB PO SCH (09:47)
[2016-07-30] MEDS: ESTRADIOL 1 MG TAB PO SCH (09:48)
== END 2016-07-30 10:20 | disposition home or self-care (01) | DRG 375 ==
LOC: CLAB 09:08 → HRIP 10:41 → HRAD 11:00 → N07A 16:08
PROVIDERS: ADMIT Surgery Trauma Surgery; ATTEND Surgery Trauma Surgery
DX: C78.6 Secondary malignant neoplasm of retroperitoneum and peritoneum (principal); R18.8 Other ascites; I10 Essential (primary) hypertension; K21.9 Gastro-esophageal reflux disease without esophagitis; F31.9 Bipolar disorder, unspecified; G89.3 Neoplasm related pain (acute) (chronic)
CPT/HCPCS: 36415; 74176; 76705; 80053; 80076; 85027; 85610; 85730; C9113; J2270; J2765; J7030

== ENCOUNTER 2016-07-31 06:30 | Emergency (ER) | payer BC ==
[~2016-07-31] VITALS: Ht 162.6 cm; Wt 75.0 kg
[~2016-07-31 06:30] MED LIST changes: +LOSA100T PO; -LOSA25TA PO; +VENL150T PO; -VENL75TA PO
[2016-07-31 06:31] VITALS: BP 124/79; PULSE 118; RESP 16; TEMP 97.5; O2SAT 92
[2016-07-31] MEDS ORDERED: ONDANSETRON HCL 4 MG/2 ML VIAL IV PUSH ONE ×2 (07:15→16:15)
[2016-07-31] MEDS ORDERED: SODIUM CHLORID 0.9% 500 ML INJ 500 ML IV ONE (07:15)
--- NOTE | 2016-07-31 07:23 | PD ---
HPI Chief Complaint: GI Complaint Time Seen by Provider: 07:02 Travel History International Travel<30 days: No Contact w/Intl Traveler<30days: No Traveled to known affect area: No History of Present Illness HPI 60 y/o female presents with nonbloody emesis and diarrhea with epigastric abdominal pain. She states she does not have any nausea medication at home. She states she called her doctor who advised her to come in last night but she wanted to try to wait and she didn't get better this morning she elected to come in. She states that she just got discharged from the hospital at 10:30 AM yesterday. She states she was in the hospital as they're working on figuring out what type of abdominal cancer she has an starting her on the right treatment. She states they have ruled out all female types of cancer and think it is related to her gallbladder. She denies any fever or other concurrent complaints. She states her abdominal pain feels like it weighs does and she is concerned that she cannot keep down liquids. PFSH Past Medical History Cancer: Yes (cervical cancer 30 years ago) Cardiovascular Problems: Yes (HTN) Diabetes: No Endocrine: Yes (had problems ovulating) Gastrointestinal Disorders: Yes (gerd, nausea vomiting) Genitourinary: No Hepatitis: No Hiatal Hernia: No Hypertension: Yes Immune Disorder: No Musculoskeletal: Yes (metatarsal sx on both feet) Neurologic: No Psychiatric: No Reproductive: Yes ( one ovary) Respiratory: Yes (FLUID ON LUNG) Immunizations Current: Yes Thyroid Disease: No Tetanus Vaccination: > 5 Years ?: Not Ovarian Cysts: Yes Past Surgical History AICD: No Body Medical Devices: breast aug. 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) Tobacco Use: No Substance Use: Yes (COCAINE 40 YEARS AGO) Allergies-Medications (Allergen,Severity, Reaction): Coded Allergies: Codeine (Verified Adverse Reaction, Intermediate, Nausea/Vomiting, 07/31/16 ) Reported Meds & Prescriptions Reported Meds & Active Scripts Active [place] (Hydrocodone-Acetaminophen) 7.5-325 mg Tab 1-2 Tab PO Q4H PRN Reported Venlafaxine ER 24 HR (Venlafaxine HCl) 150 Mg Tab 150 Mg PO DAILY Losartan (Losartan Potassium) 100 Mg Tab 100 Mg PO DAILY Progesterone Micronized 200 Mg Cap 200 Mg PO HS Estradiol 0.5 Mg Tab 0.5 Mg PO DAILY Reglan (Metoclopramide HCl) 10 Mg Tab 10 Mg PO TIDAC Omeprazole 40 Mg Cap 40 Mg PO DAILY Zolpidem (Zolpidem Tartrate) 5 Mg Tab 10 Mg PO HS PRN Trazodone (Trazodone HCl) 100 Mg Tab 200 Mg PO HS Review of Systems Except as stated in HPI: all other systems reviewed are Neg Physical Exam Narrative GENERAL: Well-nourished, well-developed patient. SKIN: Warm and dry. HEAD: Normocephalic and atraumatic. EYES: No injection or drainage. ENT: No nasal drainage noted. NECK: Supple, trachea midline. CARDIOVASCULAR: Regular rate and rhythm RESPIRATORY: Breath sounds equal bilaterally at apices. No accessory muscle use. GASTROINTESTINAL: Abdomen soft, mild tenderness in epigastric area, distention noted, no rebound or guarding NEUROLOGICAL: Awake and alert. Motor and sensory grossly within normal limits. Normal speech. Data Data Last Documented VS Vital Signs Date Time Temp Pulse Resp B/P Pulse Ox O2 Delivery O2 Flow Rate FiO2 07/31/16 14:24 102 16 124/75 95 07/31/16 07:41 Room Air 07/31/16 06:31 97.5 Orders Magnesium (Mg) (07/31/16 07:05) Phosphorus (Po4) (07/31/16 07:05) Complete Blood Count With Diff (07/31/16 07:05) Comprehensive Metabolic Panel (07/31/16 07:05) Iv Access Insert/Monitor (07/31/16 07:05) Ecg Monitoring (07/31/16 07:05) Oximetry (07/31/16 07:05) Ondansetron Inj (Zofran Inj) (07/31/16 07:15) Sodium Chlorid 0.9% 500 Ml Inj (Ns 500 M (07/31/16 07:15) Chest, Single Ap (07/31/16 ) Urinalysis - C+S If Indicated (07/31/16 07:27) Abdomen, Kub Only (07/31/16 ) Blood Culture (07/31/16 08:41) Ceftriaxone Inj (Rocephin Inj) (07/31/16 08:45) D5-1/2 Ns + Kcl 20 Meq Inj (D5-1/2 Ns + (07/31/16 09:58) Radiology Film Requests (07/31/16 ) Diet Npo (07/31/16 Dinner) Labs Laboratory Tests Test 07/31/16 07/31/16 07:33 07:45 White Blood Count 15.5 TH/MM3 Red Blood Count 3.98 MIL/MM3 Hemoglobin 11.5 GM/DL Hematocrit 32.8 % Mean Corpuscular Volume 82.5 FL Mean Corpuscular Hemoglobin 28.8 PG Mean Corpuscular Hemoglobin 35.0 % Concent Red Cell Distribution Width 13.9 % Platelet Count 549 TH/MM3 Mean Platelet Volume 7.1 FL Neutrophils (%) (Auto) 84.0 % Lymphocytes (%) (Auto) 4.8 % Monocytes (%) (Auto) 10.9 % Eosinophils (%) (Auto) 0.1 % Basophils (%) (Auto) 0.2 % Neutrophils # (Auto) 13.0 TH/MM3 Lymphocytes # (Auto) 0.7 TH/MM3 Monocytes # (Auto) 1.7 TH/MM3 Eosinophils # (Auto) 0.0 TH/MM3 Basophils # (Auto) 0.0 TH/MM3 CBC Comment DIFF FINAL Differential Comment Sodium Level 138 MEQ/L Potassium Level 3.6 MEQ/L Chloride Level 101 MEQ/L Carbon Dioxide Level 24.1 MEQ/L Anion Gap 13 MEQ/L Blood Urea Nitrogen 9 MG/DL Creatinine 0.69 MG/DL Estimat Glomerular Filtration 87 ML/MIN Rate Random Glucose 104 MG/DL Calcium Level 8.5 MG/DL Phosphorus Level 3.3 MG/DL Magnesium Level 2.0 MG/DL Total Bilirubin 1.6 MG/DL Aspartate Amino Transf 33 U/L (AST/SGOT) Alanine Aminotransferase 29 U/L (ALT/SGPT) Alkaline Phosphatase 862 U/L Total Protein 7.2 GM/DL Albumin 2.2 GM/DL Urine Color LIGHT-BROWN Urine Turbidity CLOUDY Urine pH 6.0 Urine Specific [place] 1.026 Urine Protein 30 mg/dL Urine Glucose (UA) NEG mg/dL Urine Ketones 80 mg/dL Urine Occult Blood SMALL Urine Nitrite NEG Urine Bilirubin NEG Urine Urobilinogen 8.0 MG/DL Urine Leukocyte Esterase NEG Urine RBC 2 /hpf Urine WBC 3 /hpf Urine Squamous Epithelial 16 /hpf Cells Urine Amorphous Sediment MANY Urine Bacteria OCC /hpf Urine Mucus FEW /lpf Microscopic Urinalysis Comment CULT NOT INDICATED MDM Medical Decision Making Medical Screen Exam Complete: Yes Emergency Medical Condition: Yes Medical Record Reviewed: Yes (past history confirm, recent hospitalization and surgery notes reviewed, imaging reviewed; working on new diagnosis of abdominal carcinomatosis) Interpretation(s) CBC & BMP Diagram 07/31/16 07:33 Last 24 hours Impressions Chest X-Ray 07/31/16 0000 Signed Impressions: Service Date/Time: Sunday, July 31, 2016 07:19 - CONCLUSION: 1. Moderate right pleural effusion and right basilar density likely atelectasis. Right pleural effusion has increased in size. 2. Left lung is clear. Bernard Trivedi MD Abdomen X-Ray 07/31/16 0000 Signed Impressions: Service Date/Time: Sunday, July 31, 2016 07:29 - CONCLUSION: No acute abdominal abnormality is identified. There are degenerative changes throughout the lumbar spine. Jean Miranda MD In regards to white count chest x-ray will give 1 dose of Rocephin to cover for possible infection and sent blood cultures Differential Diagnosis Acute renal failure, electrolyte abnormality, obstruction, gastroenteritis Narrative Course Will check blood work, chest x-ray, urinalysis and dose with IV fluids and nausea medication and discuss with her oncologist 750 patient agrees to transfer, plays message from her gi office dr bernal and will have staff call [facility] [place] specialist for transfer [phone] transfer center is working on getting patient a bed, patient updated Physician Communication Physician Communication dr chiu states to discuss with general surgery about transfer to [place] for duodneal stent dr tolliver agrees needs transfer for duodenal stent, no need to repeat ct dr dolan accepts patient in transfer at [facility] on floor, given history and physical Diagnosis Primary Impression: Vomiting and diarrhea Additional Impression: Abdominal carcinomatosis Disposition: 70 TRANSFER TO OTHER FACILITY Condition: Stable Lata Ramos MD Jul 31, 2016 07:23
[2016-07-31 07:40] VITALS: O2SAT 99
[2016-07-31 07:41] VITALS: BP 110/71; PULSE 111; RESP 24; O2SAT 98
[2016-07-31 07:41] LABS: BASOPHIL % 0.2 % (0.0-2.0); EOSINOPHIL % 0.1 % (0.0-4.0); HEMATOCRIT 32.8 % (35.0-46.0); HEMO FLAGS DIFF FINAL; LYMPH % 4.8 % (9.0-44.0); LYMPHOCYTE # 0.7 TH/MM3 (1.0-4.8); MEAN CELL VOLUME 82.5 FL (80.0-100.0); MEAN CORPUSCULAR HEMOGLOBIN 28.8 PG (27.0-34.0); MONO % 10.9 % (0.0-8.0); PLATELET COUNT 549 TH/MM3 (150-450); RED BLOOD COUNT 3.98 MIL/MM3 (4.00-5.30); RED CELL DISTRIBUTION WIDTH 13.9 % (11.6-17.2); WHITE BLOOD COUNT 15.5 TH/MM3 (4.0-11.0)
--- NOTE | 2016-07-31 07:52 | RADRPT ---
EXAM DATE/TIME: 07/31/2016 07:19 [facility] COMPARISON: CT THORAX W CONTRAST, July 23, 2016, 10:18. INDICATIONS : Patient has been vomiting since yesterday and has been short of breath. MEDICAL HISTORY : Hypertension. SURGICAL HISTORY : None. ENCOUNTER: Initial ACUITY: 1 day PAIN SCORE: 5/10 LOCATION: Abdomen FINDINGS: A single view of the chest demonstrates moderate right pleural effusion and right basilar density. Le ft lung clear. Right-sided portacatheter with tip in SVC. The cardiomediastinal contours are unremark able. Osseous structures are intact. CONCLUSION: 1. Moderate right pleural effusion and right basilar density likely atelectasis. Right pleural effusi on has increased in size. 2. Left lung is clear. Bernard Trivedi MD on July 31, 2016 at 7:50 Board Certified Radiologist. This report was verified electronically.
--- NOTE | 2016-07-31 08:02 | RADRPT ---
EXAM DATE/TIME: 07/31/2016 07:29 [facility] COMPARISON: CT ABDOMEN & PELVIS W/O CONTRAST, July 28, 2016, 22:07. INDICATIONS : Upper abdominal pain for months, nausea MEDICAL HISTORY : Gastroesophageal reflux disease. Hypertension. Cervical cancer SURGICAL HISTORY : breast augmentation ENCOUNTER: Initial ACUITY: 3 months PAIN SCORE: 7/10 LOCATION: Bilateral abdomen FINDINGS: Single supine frontal view of the abdomen demonstrates air within bowel in a nonobstructive pattern. No organomegaly or abnormal calcifications are identified. There are degenerative changes of the lumb ar spine. CONCLUSION: No acute abdominal abnormality is identified. There are degenerative changes throughout the lumbar sp ine. Jean Miranda MD on July 31, 2016 at 7:58 Board Certified Radiologist. This report was verified electronically.
[2016-07-31 08:08] LABS: ANION GAP 13 MEQ/L (5-15); BICARBONATE 24.1 MEQ/L (21.0-32.0); BLOOD UREA NITROGEN 9 MG/DL (7-18); CHLORIDE 101 MEQ/L (98-107); GLOMERULAR FILTRATION RATE 87 ML/MIN (>89); POTASSIUM 3.6 MEQ/L (3.5-5.1); SODIUM (NA) 138 MEQ/L (136-145)
[2016-07-31 08:11] LABS: ALKALINE PHOSPHATASE 862 U/L (45-117); ALT (GPT) 29 U/L (10-53); AST (GOT) 33 U/L (15-37); TOTAL BILIRUBIN ADULT 1.6 MG/DL (0.2-1.0)
[2016-07-31 08:39] LABS: BACTERIA, URINE OCC /hpf; BLOOD, URINE SMALL (NEG); COMMENT (UR) CULT NOT INDICATED; CULTURE IF INDICATED CULT NOT INDICATED; GLUCOSE,URINE NEG (NEG); KETONE, URINE 80 mg/dL (NEG); MUCUS URINE FEW /lpf (OCC); NITRITE,URINE NEG (NEG); SQUAMOUS EPITHELIAL CELL URINE 16 /hpf (0-5); URINE COLOR LIGHT-BROWN (YELLW/STRAW)
[2016-07-31] MEDS ORDERED: cefTRIAXone INJ 1,000 MG in SODIUM CHLORIDE 0.9% INJ 100 ML IV ONE (08:45)
[2016-07-31] MEDS ORDERED: D5-1/2 NS + KCL 20 MEQ INJ 1,000 ML IV SCH (09:58)
[2016-07-31 14:24] VITALS: BP 124/75; PULSE 102; RESP 16; O2SAT 95
[2016-07-31 21:00] VITALS: BP 136/71; PULSE 116; RESP 20; O2SAT 95
[2016-07-31] MEDS ORDERED: ZOLPIDEM TARTRATE 10 MG TAB PO ONE (21:45)
[2016-07-31] MEDS ORDERED: METOCLOPRAMIDE HCL 10 MG/2 ML VIAL IV PUSH ONE (21:45)
[2016-07-31] MEDS ORDERED: traZODone HCL 100 MG TAB PO ONE (21:45)
[2016-07-31 22:08] VITALS: BP 136/78; PULSE 106; RESP 20; O2SAT 96
== END 2016-07-31 22:39 | disposition short-term general hospital (02) ==
LOC: NEPC 06:30
DX: R19.7 Diarrhea, unspecified (principal); R11.10 Vomiting, unspecified; C80.0 Disseminated malignant neoplasm, unspecified; J90 Pleural effusion, not elsewhere classified; I10 Essential (primary) hypertension
CPT/HCPCS: 71010; 74000; 80053; 81001; 83735; 84100; 85025; 87040; 96361; 96365; 96366; 96375; 96376; 99285; J0696; J2405; J2765; J3480; J7040

== ENCOUNTER 2016-08-20 07:02 | Inpatient (IN) | payer BC ==
[~2016-08-20] VITALS: Ht 162.6 cm; Wt 83.6 kg
[2016-08-20 22:47] VITALS: BP 127/90; PULSE 104; RESP 18; TEMP 96.7; O2SAT 97
[2016-08-20] MEDS ORDERED: ZOLPIDEM TARTRATE 5 MG TAB PO PRN (23:45)
[2016-08-20] MEDS ORDERED: RESP: ALBUTEROL CONC 2.5 MG/0.5 ML NEB NEB PRN (23:45)
[2016-08-20] MEDS ORDERED: ACETAMINOPHEN/HYDROcodone 325 MG/7.5 MG TAB PO PRN (23:45)
[2016-08-20] MEDS ORDERED: SODIUM CHLORIDE 0.9% FLUSH 10 ML FLUSH IV FLUSH PRN (23:45)
[2016-08-20] MEDS ORDERED: NALOXONE HCL 0.4 MG/ML AMP IV PRN (23:45)
[2016-08-20 23:50] VITALS: PULSE 104
[2016-08-21] VITALS (7 sets, daily range): BP systolic 105–170; BP diastolic 66–91; PULSE 103–116; RESP 16–22; TEMP 96.5–98.1; O2SAT 91–95
[2016-08-21] MEDS: ONDANSETRON HCL 4 MG/2 ML VIAL IVP PRN ×3 (00:20→12:27)
[2016-08-21] MEDS: HYDROmorphone HCL PF 1 MG/ML VIAL IV PUSH PRN ×4 (02:26→17:12)
[2016-08-21] MEDS: METOCLOPRAMIDE HCL 10 MG/2 ML VIAL IV PUSH SCH ×5 (06:00→22:53)
[2016-08-21 06:59] LABS: AUTOMATED NEUTROPHIL # 16.4 TH/MM3 (1.8-7.7); BASOPHIL % 0.1 % (0.0-2.0); EOSINOPHIL % 0.1 % (0.0-4.0); HEMATOCRIT 31.2 % (35.0-46.0); HEMO FLAGS DIFF FINAL; LYMPH % 5.2 % (9.0-44.0); MEAN CELL VOLUME 81.9 FL (80.0-100.0); MEAN CORPUSCULAR HEMOGLOBIN 26.8 PG (27.0-34.0); MEAN CORPUSCULAR HGB CONC 32.7 % (32.0-36.0); MONO % 8.1 % (0.0-8.0); NEUT % 86.5 % (16.0-70.0); PLATELET COUNT 432 TH/MM3 (150-450); RED BLOOD COUNT 3.81 MIL/MM3 (4.00-5.30); RED CELL DISTRIBUTION WIDTH 15.9 % (11.6-17.2); WHITE BLOOD COUNT 18.9 TH/MM3 (4.0-11.0)
[2016-08-21 07:25] LABS: ALKALINE PHOSPHATASE 207 U/L (45-117); ALT (GPT) 10 U/L (10-53); ANION GAP 10 MEQ/L (5-15); AST (GOT) 26 U/L (15-37); BICARBONATE 26.4 MEQ/L (21.0-32.0); BLOOD UREA NITROGEN 10 MG/DL (7-18); CHLORIDE 102 MEQ/L (98-107); GLOMERULAR FILTRATION RATE 121 ML/MIN (>89); POTASSIUM 3.6 MEQ/L (3.5-5.1); SODIUM (NA) 138 MEQ/L (136-145); TOTAL BILIRUBIN ADULT 1.4 MG/DL (0.2-1.0)
[2016-08-21] MEDS: SODIUM CHLORIDE 0.9% FLUSH 10 ML FLUSH IV FLUSH SCH ×2 (08:32→21:00)
[2016-08-21] MEDS: PANTOPRAZOLE SOD 40 MG DELAYED RELEASE TAB PO SCH (08:49)
[2016-08-21] MEDS: ESTRADIOL 1 MG TAB PO SCH (08:49)
[2016-08-21] MEDS: VENLAFAXINE HCL XR 75 MG CAP PO SCH (08:49)
[2016-08-21] MEDS: LOSARTAN 50 MG TAB PO SCH (08:49)
--- NOTE | 2016-08-21 09:45 | HHI.HP ---
[facility] Jesus Garcia M.D. 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 Patient was recently seen here a few weeks ago and was transferred to [facility] for a duodenal stent in which that was unable to be done so a J-tube was placed. Patient stated that they try to advance use feeing tube but was unsuccessful. Patient then transferred here in order to have care closer to home. Per patient 's , Dr. Bermudez wanted to try chemotherapy to see if that would help. Patient's complaining of her legs being swollen causing discomfort in which she is unable to walk. She stated that this occurred over weeks. Denies any calf pain. Patient also stated that she's been having emesis for the past few weeks. She stated that Phenergan or Zofran is not helping her. Patient is on Reglan. Otherwise she has no other complaints. Patient's and nephew are at the bedside. Review of Systems Constitutional: COMPLAINS OF: Fatigue, Change in appetite, DENIES: Diaphoretic episodes, Fever, Weight gain, Weight loss, Chills, Dizziness, Night Sweats Endocrine: DENIES: Abnorml menstrual pattern, Heat/cold intolerance, Polydipsia , Polyuria, Polyphagia Eyes: DENIES: Blurred vision, Diplopia, Eye inflammation, Eye pain, Vision loss , Photosensitivity, Double Vision Ears, nose, mouth, throat: DENIES: Tinnitus, Hearing loss, Vertigo, Nasal discharge, Oral lesions, Throat pain, Hoarseness, Ear Pain, Running Nose, Epistaxis, Sinus Pain, Toothache, Odynophagia Respiratory: DENIES: Apneas, Cough, Snoring, Wheezing, Hemoptysis, Sputum production, Shortness of breath Cardiovascular: DENIES: Chest pain, Palpitations, Syncope, Dyspnea on Exertion , PND, Lower Extremity Edema, Orthopnea, Claudication Gastrointestinal: COMPLAINS OF: Abdominal pain, Nausea, Vomiting Genitourinary: DENIES: Abnormal vaginal bleeding, Dysmenorrhea, Dyspareunia, Sexual dysfunction, Urinary frequency, Urinary incontinence, Urgency, Hematuria , Dysuria, Nocturia, Vaginal discharge Musculoskeletal: DENIES: Joint pain, Muscle aches, Stiffness, Joint Swelling, Back pain, Neck pain Integumentary: DENIES: Abnormal pigmentation, Pruritus, Rash, Nail changes, Breast masses, Breast skin changes, Nipple discharge Hematologic/lymphatic: DENIES: Bruising, Lymphadenopathy Immunologic/allergic: DENIES: Eczema, Urticaria Neurologic: DENIES: Abnormal gait, Headache, Localized weakness, Paresthesias, Seizures, Speech Problems, Tremor, Poor Balance Psychiatric: DENIES: Anxiety, Confusion, Mood changes, Depression, Hallucinations, Agitation, Suicidal Ideation, Homicidal Ideation, Delusions Past Family Social History Past Medical History J-tube place and [facility] 07/22/2016, diagnostic laparoscopy and biopsy of omental tissue with excision of small portion of the peritoneum and falciform ligament revealing poorly differentiated adenocarcinoma. 07/23/2016 [id number] placement right upper chest involving right internal jugular vein. Ovarian cyst and right ovary removed at age 16. Surgery involving the metatarsals of both feet. Tonsillectomy. Breast augmentation Past Surgical History Chronic diarrhea for 2-3 years. Gastroesophageal reflux. Hypertension. Bipolar disorder. Intra-abdominal carcinomatosis as described above. Reported Medications [place] (Hydrocodone-Acetaminophen) 7.5-325 mg Tab 1-2 Tab PO Q4H PRN Venlafaxine ER 24 HR (Venlafaxine HCl) 150 Mg Tab 150 Mg PO DAILY Losartan (Losartan Potassium) 100 Mg Tab 100 Mg PO DAILY Progesterone Micronized 200 Mg Cap 200 Mg PO HS Estradiol 0.5 Mg Tab 0.5 Mg PO DAILY Reglan (Metoclopramide HCl) 10 Mg Tab 10 Mg PO TIDAC Omeprazole 40 Mg Cap 40 Mg PO DAILY Zolpidem (Zolpidem Tartrate) 5 Mg Tab 10 Mg PO HS PRN Trazodone (Trazodone HCl) 100 Mg Tab 200 Mg PO HS Allergies: Coded Allergies: Codeine (Verified Adverse Reaction, Intermediate, Nausea/Vomiting, 07/31/16 ) Active Ordered Medications Current Medications Sodium Chloride (NS Flush) 2 ml UNSCH PRN IV FLUSH FLUSH AFTER USING IV ACCESS ; Start 08/20/16 at 23:45 Sodium Chloride (NS Flush) 2 ml BID IV FLUSH Last administered on 08/21/16 08: 32; Start 08/21/16 at 09:00 Ondansetron HCl (Zofran Inj) 4 mg Q6H PRN IVP NAUSEA OR VOMITING Last administered on 08/21/16 06:00; Start 08/20/16 at 23:45 Enoxaparin Sodium (Lovenox Inj) 40 mg Q24H SQ ; Start 08/21/16 at 09:00 Naloxone HCl (Narcan Inj) 0.4 mg UNSCH PRN IV SEE LABEL COMMENTS; Start at 23:45 Albuterol Sulfate (Albuterol Concentrated Neb) 2.5 mg Q4HR NEB PRN NEB wheezing ; Start 08/20/16 at 23:45 Metoclopramide HCl (Reglan Inj) 10 mg Q6HR IV PUSH Last administered on 00:00; Start 08/21/16 at 00:00 Pantoprazole Sodium (Protonix) 40 mg DAILY PO ; Start 08/21/16 at 09:00 Estradiol (Estradiol) 0.5 mg DAILY PO ; Start 08/21/16 at 09:00 Acetaminophen/ Hydrocodone Bitart ([place] 7.5-325 Mg) 1 tab Q4H PRN PO pain >5 ; Start 08/20/16 at 23:45; Stop 08/21/16 at 02:19; Status DC Losartan Potassium (Cozaar) 100 mg DAILY PO ; Start 08/21/16 at 09:00 Trazodone HCl (Desyrel) 200 mg HS PO ; Start 08/21/16 at 21:00 Venlafaxine HCl (Effexor Xr) 150 mg DAILY PO ; Start 08/21/16 at 09:00 Zolpidem Tartrate (Ambien) 10 mg HS PRN PO INSOMNIA Last administered on 00:16; Start 08/20/16 at 23:45 Patient Own Medication PT OWN MED: PROGESTERONE MICONI... HS PO Endometrial hyperplasia; Start 08/21/16 at 21:00; Status Future Hold Hydromorphone HCl (Dilaudid Pf Inj) 1 mg Q4H PRN IV PUSH pain >5 Last administered on 08/21/16t 08:31; Start 08/21/16 at 02:30 Furosemide (Lasix) 20 mg BID@09,18 PO ; Start 08/21/16 at 09:45 Family History Mother of complications of a stroke at 67. Father of a cardiac arrest at 76. The patient has two sisters who are living. Social History Denying tobacco, alcohol or illicit drug use. Physical Exam Vital Signs Vital Signs Date Time Temp Pulse Resp B/P Pulse Ox O2 Delivery O2 Flow Rate FiO2 08/21/16 08:00 97.9 106 20 134/91 95 08/21/16 04:05 96.5 103 16 145/86 95 08/21/16 02:57 20 08/20/16 23:50 104 08/20/16 22:47 96.7 104 18 127/90 97 Physical Exam GENERAL: This is a chronically looking ill female in no acute distress. SKIN: No rashes, ecchymoses or lesions. Cool and dry. HEAD: Atraumatic. Normocephalic. No temporal or scalp tenderness. EYES: Pupils equal round and reactive. Extraocular motions intact. No scleral icterus. No injection or drainage. ENT: Nose without bleeding, purulent drainage or septal hematoma. Throat without erythema, tonsillar hypertrophy or exudate. Uvula midline. Airway patent. NECK: Trachea midline. No JVD or lymphadenopathy. Supple, nontender, no meningeal signs. CARDIOVASCULAR: Regular rate and rhythm without murmurs, gallops, or rubs. Port in place. RESPIRATORY: Clear to auscultation. Breath sounds equal bilaterally. No wheezes , rales, or rhonchi. GASTROINTESTINAL: Abdomen soft, distended, diffuse positive tenderness palpation. No hepato-splenomegaly, or palpable masses. No guarding. J-tube in place showing bilious output. MUSCULOSKELETAL: Bilateral lower extremity pitting edema +2. No joint tenderness , effusion, or edema noted. No calf tenderness. Negative Homans sign bilaterally. NEUROLOGICAL: Awake and alert. Cranial nerves II through XII intact. Motor and sensory grossly within normal limits. Five out of 5 muscle strength in all muscle groups. Normal speech. Laboratory Laboratory Tests Test 08/21/16 05:20 White Blood Count 18.9 Red Blood Count 3.81 Hemoglobin 10.2 Hematocrit 31.2 Mean Corpuscular Volume 81.9 Mean Corpuscular Hemoglobin 26.8 Mean Corpuscular Hemoglobin 32.7 Concent Red Cell Distribution Width 15.9 Platelet Count 432 Mean Platelet Volume 8.1 Neutrophils (%) (Auto) 86.5 Lymphocytes (%) (Auto) 5.2 Monocytes (%) (Auto) 8.1 Eosinophils (%) (Auto) 0.1 Basophils (%) (Auto) 0.1 Neutrophils # (Auto) 16.4 Lymphocytes # (Auto) 1.0 Monocytes # (Auto) 1.5 Eosinophils # (Auto) 0.0 Basophils # (Auto) 0.0 CBC Comment DIFF FINAL Differential Comment Sodium Level 138 Potassium Level 3.6 Chloride Level 102 Carbon Dioxide Level 26.4 Anion Gap 10 Blood Urea Nitrogen 10 Creatinine 0.52 Estimat Glomerular Filtration 121 Rate Random Glucose 104 Calcium Level 8.2 Total Bilirubin 1.4 Aspartate Amino Transf 26 (AST/SGOT) Alanine Aminotransferase 10 (ALT/SGPT) Alkaline Phosphatase 207 Total Protein 6.1 Albumin 1.7 Lipase 1423 Result Diagram: 08/21/1651908/21/16519 Assessment and Plan Assessment and Plan This 60-year-old female with recent diagnosis of adenocarcinoma the gallbladder with abdominal carcinomatosis 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 -Dr. Bermudez consulted. -Continue with pain control with IV Dilaudid since patient stated that this helps. Patient was getting Lortab previously and that was also continue. Intractable emesis -Due to the above. -Patient has been on Phenergan, Zofran and Reglan with no improvement. 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 Leukocytosis -Most likely secondary to cancer. -There is no suspected source of infection. -We will get UA, chest x-ray and blood cultures. -Continue to monitor. Lower extremity edema -Since this is causing patient discomfort add Lasix. -Will monitor while patients on medication. Anemia -Most likely anemia of chronic disease. -Stable. No signs of bleeding. -Continue to monitor. Postmenopausal, hypertension, GERD, anxiety -Will resume home medication. DVT prophylaxis -Lovenox. Code Status Full code Discussed Condition With Patient, her , and her nephew who is a radiologist here. Physician Certification 2 Midnight Certification Type: Admission for Inpatient Services Order for Inpatient Services The services are ordered in accordance with Medicare regulations or non- Medicare payer requirements, as applicable. In the case of services not specified as inpatient-only, they are appropriately provided as inpatient services in accordance with the 2-midnight benchmark. Estimated LOS (days): 5 5 days is the estimated time the patient will need to remain in the hospital, assuming treatment plan goals are met and no additional complications. Post-Hospital Plan: Home Health Malaika Rojas MD Aug 21, 2016 09:45
[2016-08-21] MEDS ORDERED: SODIUM CHLORIDE 0.9% FLUSH 10 ML FLUSH IV FLUSH PRN (10:45)
[2016-08-21] MEDS: ENOXAPARIN SODIUM 40 MG/0.4 ML SYRINGE SQ SCH (11:24)
[2016-08-21] MEDS: FUROSEMIDE 20 MG TAB PO SCH ×2 (11:44→19:06)
--- NOTE | 2016-08-21 11:46 | RADRPT ---
EXAM DATE/TIME: 08/21/2016 10:37 [facility] COMPARISON: CHEST PA & LAT, November 06, 2014, 14:39. INDICATIONS : Lower chest pain post G-tube placement. MEDICAL HISTORY : Carcinoma, gallbladder. SURGICAL HISTORY : Breast augmentation. ENCOUNTER: Initial ACUITY: 2 days PAIN SCORE: 7/10 LOCATION: Left lower chest FINDINGS: The cardiac silhouette is enlarged in transverse diameter. There is patchy alveolar disease bilateral ly compatible with edema or pneumonia. There is left lower lobe atelectasis versus pneumonia. Infuse- a-Port is in place via right internal jugular approach with its tip in the superior vena cava. CONCLUSION: 1. Patchy alveolar disease characteristic of edema or pneumonia. 2. Left-sided effusion and left lower lobe atelectasis Dread Nunez MD on August 21, 2016 at 11:43 Board Certified Radiologist. This report was verified electronically.
[2016-08-21] MEDS ORDERED: PROMETHAZINE HCL 25 MG SUPP RECTAL PRN (12:00)
--- NOTE | 2016-08-21 14:35 | PD.CONS ---
HPI History of Present Illness This is a 60 year old female who developed nausea and vomiting about 2-3 months ago and was referred to Dr. Garcia, who evaluated her with an EGD and she was found to have extrinsic compression in the area of the duodenum with only a small opening. The biliary system could not be visualized. There was no esophageal or gastric mass. According to Dr. Bermudez's note, outpatient radiographic studies suggested the possibility of tumor and the upper abdominal area. She was then evaluated with diagnostic laparoscopic BX and biopsy of omental tissue with excision of a small portion in the peritoneum and falciform ligament (07/22/16). SHe had mild ascites and diffuse intra-abdominal carcinomatosis with compression of the duodenum at that time and bypass surgery was not done as there was a concern that if the gastrojejunostomy was done there revealed leak due to the presence of tumor involving the bowel preventing the anastomotic site from healing. 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 She was evaluated by Dr. Washington he felt that this was suggestive of a cancer of the stomach, esophagus or hepatobiliary and pancreas. She then had a CT scan of the abdomen and pelvis which revealed marked inhomogeneity around the gallbladder fossa with a very indistinct wall and a gallstone present. The CBD was dialted all the way down to the ampullar and there were lymph nodes in the second portion of the duodenum. She was then transferred to [facility] for duodenal stent placement, where she underwent ERCP with 2 metal stents placed in CBD (08/03/16), EGD with duodenal stent placement (08/11/16 ), and EGD with G/J tube placement (08/17/16). ERCP (08/03/16)----> malignant duodenal stenosis, a pancreatic duct (with upstream dilation) and distal bile duct stricture (with minimal upstream dilation was found suggesting the possibility of a pancreatic cancer. A localized smooth biliary narrowing was found in the CHD suggesting the possibility of impingement from hilar L and. The stricture was malignant appearing. 2 uncovered metal stents were placed in the common bile duct. EGD with duodenal stent placement (08/11/16)---> acquired duodenal stenosis. Prosthesis placed. No specimens collected. The patient reports that she continued to have nausea/vomiting and therefore had EGD with an externally removable PEG J placement (08/17/16)----> clear gastric fluid. Fluid aspiration performed. No specimens collected. Duodenal stents. Normal examined jejunum. An externally removable PEG J placement was successfully completed. The patient tells me that the G/J tube was not really used on the , but TF was started on the and she tolerated this well. She was then transferred back to this facility on 08/20/16. Upon arrival back to this facility, she started having nausea and vomiting again with bilious material. Her TF is currently going at 20cc/hr, but she is frequently vomiting small amounts of bilious material. She denies any significant abdominal pain. She states she has some tenderness where the tube was placed, but no significant pain. She does have distention. She states her last regular bowel movement was 4 days ago, but she is passing some air and liquid stool now. (Frances Coto) PFSH Past Medical History Duodenal stenosis/stricture. 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 Ovarian cyst GERD Chronic diarrhea Bipolar disorder Past Surgical History Diagnostic laparoscopy and biopsy of omental tissue Infusa port placement Ovarian cyst, right oophorectomy Surgery involving the metatarsals of both feet Tonsillectomy Breast augmentation ERCP with stent placement EGD with duodenal stent placement EGD with G/J tube placement (Frances Coto) Coded Allergies: Codeine (Verified Adverse Reaction, Intermediate, Nausea/Vomiting, 07/31/16 ) Medications Allergies Coded Allergies Type Severity Reaction Last Updated Verified Codeine Adverse Reaction Intermediate Nausea/Vomiting 07/31/16 Yes Active Scripts Medications Dose Route/Sig Days Date Category Venlafaxine ER 24 HR (Venlafaxine HCl) 150 Mg Tab 150 Mg PO DAILY 07/28/16 Reported Losartan (Losartan Potassium) 100 Mg Tab 100 Mg PO DAILY 07/28/16 Reported [place] (Hydrocodone-Acetaminophen) 7.5-325 mg Tab 1-2 Tab PO Q4H PRN 07/22/16 Rx Progesterone Micronized 200 Mg Cap 200 Mg PO HS 07/17/16 Reported Estradiol 0.5 Mg Tab 0.5 Mg PO DAILY 07/17/16 Reported Reglan (Metoclopramide HCl) 10 Mg Tab 10 Mg PO TIDAC 07/17/16 Reported Omeprazole 40 Mg Cap 40 Mg PO DAILY 07/17/16 Reported Zolpidem (Zolpidem Tartrate) 5 Mg Tab 10 Mg PO HS PRN 07/17/16 Reported Trazodone (Trazodone HCl) 100 Mg Tab 200 Mg PO HS 07/17/16 Reported Family History Mother of complications of a stroke at 67. Father of a cardiac arrest at 76. The patient has two sisters who are living. Social History Denying tobacco, alcohol or illicit drug use. (Frances Coto) Review of Systems Constitutional: COMPLAINS OF: Fatigue, DENIES: Weight loss, Change in appetite Gastrointestinal: COMPLAINS OF: Constipation, Nausea, Vomiting, Swelling of Abdomen, DENIES: Abdominal pain, Black stools, Bloody stools, Diarrhea Integumentary: DENIES: Abnormal pigmentation Hematologic/lymphatic: DENIES: Bruising Psychiatric: DENIES: Confusion (Frances Coto) GI Exam Vitals I&O Vital Signs Date Time Temp Pulse Resp B/P Pulse Ox O2 Delivery O2 Flow Rate FiO2 08/21/16 12:00 98.1 110 20 112/80 91 08/21/16 11:45 16 08/21/16 08:00 97.9 106 20 134/91 95 08/21/16 04:05 96.5 103 16 145/86 95 08/20/16 23:50 104 08/20/16 22:47 96.7 104 18 127/90 97 I/O 08/20/16 08/20/16 08/20/16 08/21/16 08/21/16 08/21/16 07:00 15:00 23:00 07:00 15:00 23:00 Intake Total 360 ml Output Total 150 ml Balance 210 ml Intake Oral 360 ml Output Urine Total 150 ml # Bowel Movements 0 Imaging Last Impressions Chest X-Ray 08/21/16 0000 Signed Impressions: Service Date/Time: Sunday, August 21, 2016 10:37 - CONCLUSION: 1. Patchy alveolar disease characteristic of edema or pneumonia. 2. Left-sided effusion and left lower lobe atelectasis Dread Nunez MD Laboratory Test 08/21/16 05:20 White Blood Count 18.9 TH/MM3 Red Blood Count 3.81 MIL/MM3 Hemoglobin 10.2 GM/DL Hematocrit 31.2 % Mean Corpuscular Volume 81.9 FL Mean Corpuscular Hemoglobin 26.8 PG Mean Corpuscular Hemoglobin 32.7 % Concent Red Cell Distribution Width 15.9 % Platelet Count 432 TH/MM3 Mean Platelet Volume 8.1 FL Neutrophils (%) (Auto) 86.5 % Lymphocytes (%) (Auto) 5.2 % Monocytes (%) (Auto) 8.1 % Eosinophils (%) (Auto) 0.1 % Basophils (%) (Auto) 0.1 % Neutrophils # (Auto) 16.4 TH/MM3 Lymphocytes # (Auto) 1.0 TH/MM3 Monocytes # (Auto) 1.5 TH/MM3 Eosinophils # (Auto) 0.0 TH/MM3 Basophils # (Auto) 0.0 TH/MM3 CBC Comment DIFF FINAL Differential Comment Sodium Level 138 MEQ/L Potassium Level 3.6 MEQ/L Chloride Level 102 MEQ/L Carbon Dioxide Level 26.4 MEQ/L Anion Gap 10 MEQ/L Blood Urea Nitrogen 10 MG/DL Creatinine 0.52 MG/DL Estimat Glomerular Filtration 121 ML/MIN Rate Random Glucose 104 MG/DL Calcium Level 8.2 MG/DL Total Bilirubin 1.4 MG/DL Aspartate Amino Transf 26 U/L (AST/SGOT) Alanine Aminotransferase 10 U/L (ALT/SGPT) Alkaline Phosphatase 207 U/L Total Protein 6.1 GM/DL Albumin 1.7 GM/DL Lipase 1423 U/L Date/Time Procedure Status Source Growth 08/21/16 12:25 Aerobic Blood Culture Received Blood Peripheral Pending 08/21/16 12:25 Anaerobic Blood Culture Received Blood Peripheral Pending Physical Examination HEENT: Normocephalic; atraumatic; no jaundice. CHEST: CTA, diminished CARDIAC: RRR ABDOMEN: [place], distended, mild tenderness at G/J tube ; no hepatosplenomegaly; bowel sounds are present in all four quadrants. EXTREMITIES: BLE edema. SKIN: Normal; no rash; no jaundice. PIEROGI MAKER: Lethargic, generalized weakness. (Frances Coto) Assessment and Plan Plan ASSESSMENT: - Nausea, vomiting in patient with known duodenal stenosis/stricture, carcinomatosis. Pt was found to have extrinsic compression in the area of duodenum with Dr. Garcia as outpatient. She was seen here and found to have possibility of tumor in the upper abdominal area and underwent evaluation with diagnostic laparoscopic BX and biopsy of omental tissue with excision of a small portion in the peritoneum and falciform ligament (07/22/16). SHe had mild ascites and diffuse intra-abdominal carcinomatosis with compression of the duodenum at that time and bypass surgery was not done as there was a concern that if the gastrojejunostomy was done there revealed leak due to the presence of tumor involving the bowel preventing the anastomotic site from healing. Path----> poorly differentiated adenocarcinoma involving the omentum, falciform ligament, and peritoneum. CT scan of the abdomen and pelvis at that time which revealed marked inhomogeneity around the gallbladder fossa with a very indistinct wall and a gallstone present. The CBD was dialted all the way down to the ampulla and there were lymph nodes in the second portion of the duodenum. She was then transferred to [facility] for duodenal stent placement. S/P EGD with duodenal stent placement (08/11/16)---> acquired duodenal stenosis. Prosthesis placed. No specimens collected. The patient reports that she continued to have nausea/vomiting and therefore had EGD with an externally removable PEG J placement (08/17/16)----> clear gastric fluid. Fluid aspiration performed. No specimens collected. Duodenal stents. Normal examined jejunum. An externally removable PEG J placement was successfully completed. The patient tells me that the G/J tube was not really used on the , but TF was started on the and she tolerated this well. She was then transferred back to this facility on 08/20/16, and has been having persistent N/V with small amounts bilious material since arrival back to this facility. Last good 4 days ago, has been passing air and liquid since that time. D/W Dr. Latham and Dr. Grubbs. Will get KUB with gastrografin via J tube to evaluate for obstruction/placement of J tube. Will also get MRI with and without contrast of brain to r/o any metastatic disease to the brain that could be contributing to the n/v. - Biliary obstruction. S/P ERCP (08/03/16) at [facility]. ----> malignant duodenal stenosis, a pancreatic duct (with upstream dilation) and distal bile duct stricture (with minimal upstream dilation was found suggesting the possibility of a pancreatic cancer. A localized smooth biliary narrowing was found in the CHD suggesting the possibility of impingement from hilar L and. The stricture was malignant appearing. 2 uncovered metal stents were placed in the common bile duct. T. Bili 1.4, AST 26, ALT 10, Alk Phosph 207. - Leukocytosis. WBC 18.9. Afebrile. Of note, pt with persistent nausea/ vomiting. - Malnutrition. Not tolerating TF at 20cc/hr. Will get KUB to evaluate for obstruction vs. migrated J tube. Of note, she is vomiting bilious material, not TF. - Carcinomatosis. S/P diagnostic laparoscopic BX and biopsy of omental tissue with excision of a small portion in the peritoneum and falciform ligament (07/22/16). Pathology poorly differentiated adenocarcinoma involving the omentum, falciform ligament, and peritoneum. PLAN: - NPO - KUB with gastrografin via J tube - MRI brain with and without contrast - PPI - Monitor labs - Consider evaluation with CT scan abdomen and pelvis after above. - D/W Dr. Latham - D/W Dr. Lisette amaya. Would like to be called with updates- . - Supportive care - Further recommendations to follow based on results of above - Pt seen and examined by Dr. Spivey and myself and this note is written on his behalf (Frances Coto) Physician Comments Patient seen and examined Agree with above Continue with current supportive care Monitor labs Apparently the patient continues to receive J-tube feeding and apparently most of what is being vomited is just gastric juices with no evidence of tube feeding The x-ray done earlier whereby contrast was injected through the J-tube it was noted that there was some reflux into the stomach At this point it looks like there may be a gastric outlet obstruction of some sort but the patient is tolerating tube feeds so at this point we will continue tube feeding and we will work the G-tube to low intermittent suction so as to reduce heaving and vomiting and will also monitor for tube feeding evidence in the aspirate from the stomach if the patient continues to have nausea and vomiting with no tube feeding aspirate from the stomach one may be tempted to open up another PEG tube just before better suctioning or maybe change this current tube to something that could be more functional emptying out the stomach We will also continue with pantoprazole in hopes that this will reduce gastric secretions (Simon Spivey MD) Frances Coto Aug 21, 2016 14:35 Simon Spivey MD Aug 21, 2016 18:46
[2016-08-21] MEDS ORDERED: DIATRIZOATE MEGLUM/DIATRIZOATE SOD 120 ML BTL (for RAD DIAG) PEG ONE (15:16)
[2016-08-21] MEDS ORDERED: ALTEPLASE RECOMBINANT 2 MG VIAL INTRACATH ONE (15:30)
--- NOTE | 2016-08-21 15:37 | RADRPT ---
EXAM DATE/TIME: 08/21/2016 14:46 [facility] COMPARISON: No previous studies available for comparison. INDICATIONS : Evaluate j-tube placement MEDICAL HISTORY : Gastroesophageal reflux disease. Hypertension. Cervical cancer SURGICAL HISTORY : Breast augmentation ENCOUNTER: Initial ACUITY: 1 day PAIN SCORE: 0/10 LOCATION: Bilateral upper abdomen FINDINGS: Instillation of contrast through the GJ tube reveals a gastrostomy tube in the proximal small bowel i n good position. The distal small bowel is relatively decompressed. This will be followed through t he abdomen as a follow through. CONCLUSION: Gastrojejunostomy in good position. Silvino Latham MD FACR on August 21, 2016 at 15:26 Board Certified Radiologist. This report was verified electronically.
--- NOTE | 2016-08-21 16:05 | RADRPT ---
EXAM DATE/TIME: 08/21/2016 15:33 [facility] COMPARISON: ABDOMEN KUB ONLY, July 31, 2016, 7:29. INDICATIONS : Evaluate location of previously injected gastrografin MEDICAL HISTORY : Gastroesophageal reflux disease. Hypertension. Cervical cancer SURGICAL HISTORY : Breast augmentation ENCOUNTER: Initial ACUITY: 1 day PAIN SCORE: 0/10 LOCATION: Abdomen FINDINGS: Supine view of the abdomen was performed. The abdominal bowel gas pattern is normal. No abnormal ma sses, calcifications, or organomegaly is seen. The osseous structures are unremarkable. Gastrojejuno stomy tube is in place through a duodenal stent. A biliary stent is also in place. CONCLUSION: 1. No evidence of obstruction. Dread Nunez MD on August 21, 2016 at 16:01 Board Certified Radiologist. This report was verified electronically.
[2016-08-21 17:55] LABS: BACTERIA, URINE MANY /hpf; BLOOD, URINE NEG (NEG); COMMENT (UR) CULTURE INDICATED; CULTURE IF INDICATED CULTURE INDICATED; GLUCOSE,URINE NEG (NEG); KETONE, URINE NEG (NEG); MUCUS URINE MOD /lpf (OCC); NITRITE,URINE NEG (NEG); PH, URINE 5.5 (5.0-8.5); SQUAMOUS EPITHELIAL CELL URINE 9 /hpf (0-5)
[2016-08-21 17:57] LABS: URINE COLOR ORANGE (YELLW/STRAW)
[2016-08-21] MEDS ORDERED: traZODone HCL 100 MG TAB PO SCH (21:00)
[2016-08-21] MEDS ORDERED: HYDROmorphone HCL PF 1 MG/ML VIAL IV PUSH ONE (21:00)
[2016-08-21] MEDS ORDERED: PROGESTERONE MICRONIZED PO SCH (21:00)
[2016-08-21] MEDS ORDERED: FUROSEMIDE 20 MG/2 ML VIAL IV PUSH ONE (22:00)
[2016-08-21] MEDS: LORazepam 2 MG/ML VIAL IV PUSH PRN (22:52)
[2016-08-22] VITALS: BP 134/77; PULSE 116; RESP 19; TEMP 98; O2SAT 92
[2016-08-22] MEDS: HYDROmorphone HCL PF 1 MG/ML VIAL IV PUSH PRN ×2 (00:18→09:33)
[2016-08-22] MEDS: LORazepam 2 MG/ML VIAL IV PUSH PRN (02:45)
[2016-08-22] MEDS: ONDANSETRON HCL 4 MG/2 ML VIAL IVP PRN ×3 (03:01→15:57)
[2016-08-22 04:00] VITALS: BP 117/77; PULSE 115; RESP 18; TEMP 97.8; O2SAT 93
[2016-08-22] MEDS: METOCLOPRAMIDE HCL 10 MG/2 ML VIAL IV PUSH SCH ×3 (05:34→17:16)
[2016-08-22] MEDS ORDERED: ACETAMINOPHEN/HYDROcodone 325 MG/10 MG TAB J-TUBE PRN (06:00)
[2016-08-22 07:40] LABS: AUTOMATED NEUTROPHIL # 15.7 TH/MM3 (1.8-7.7); BASOPHIL % 0.1 % (0.0-2.0); EOSINOPHIL % 0.2 % (0.0-4.0); HEMATOCRIT 29.5 % (35.0-46.0); LYMPH % 4.8 % (9.0-44.0); LYMPHOCYTE # 0.9 TH/MM3 (1.0-4.8); MEAN CELL VOLUME 81.8 FL (80.0-100.0); MEAN CORPUSCULAR HEMOGLOBIN 25.5 PG (27.0-34.0); MEAN CORPUSCULAR HGB CONC 31.2 % (32.0-36.0); MONO % 6.6 % (0.0-8.0); NEUT % 88.3 % (16.0-70.0); PLATELET COUNT 345 TH/MM3 (150-450); RED BLOOD COUNT 3.61 MIL/MM3 (4.00-5.30); RED CELL DISTRIBUTION WIDTH 16.3 % (11.6-17.2); WHITE BLOOD COUNT 17.8 TH/MM3 (4.0-11.0)
[2016-08-22 07:46] LABS: HEMO FLAGS AUTO DIFF
[2016-08-22 08:00] VITALS: BP 149/94; PULSE 115; RESP 28; TEMP 96.2; O2SAT 97
[2016-08-22] MEDS ORDERED: LORazepam 2 MG/ML VIAL IV PUSH PRN (08:00)
[2016-08-22 08:16] LABS: BICARBONATE 27.7 MEQ/L (21.0-32.0); MAGNESIUM 1.9 MG/DL (1.5-2.5); POTASSIUM 3.3 MEQ/L (3.5-5.1)
[2016-08-22] MEDS: LOSARTAN 50 MG TAB PO SCH ×2 (09:00→12:44)
[2016-08-22] MEDS: ESTRADIOL 1 MG TAB PO SCH ×2 (09:11→12:44)
[2016-08-22] MEDS: SODIUM CHLORIDE 0.9% FLUSH 10 ML FLUSH IV FLUSH SCH (09:11)
[2016-08-22] MEDS: ENOXAPARIN SODIUM 40 MG/0.4 ML SYRINGE SQ SCH (09:12)
[2016-08-22] MEDS: VENLAFAXINE HCL XR 75 MG CAP PO SCH (09:16)
[2016-08-22] MEDS: PANTOPRAZOLE SOD 40 MG DELAYED RELEASE TAB PO SCH (09:17)
--- NOTE | 2016-08-22 09:21 | MB ---
cc: AMIE BERMAN DATE OF CONSULTATION: 08/22/2016 REASON FOR CONSULTATION: Intra-abdominal carcinomatosis from metastatic cancer of either the gallbladder or biliary system with severe nausea and vomiting. PATIENT PROFILE The patient is a 60 year-old white female. She is and has been to the same person for 30 years. She was born in [place]. She has lived in [place], [place], for the past three years. She has no children. She lives with her , a dog and a cat. She works as a realtor. Her is retired. The patient stopped smoking at the age of 30. Historically, she has had three or four drinks per day but in the past several months has been ill and cannot drink alcohol, in fact, cannot eat. HISTORY OF PRESENT ILLNESS: The patient is a 60 year-old female who was well until three months ago when she developed recurrent episodes of nausea and vomiting. She was referred to Dr. Jesus Garcia who is a psychiatric nursing aide and underwent upper endoscopy and was found to have extrinsic compression in the area of the duodenum with only a small opening. Outpatient radiographic studies suggested a tumor, probably arising from the common bile duct or gallbladder. She was referred to Dr. Sy Gifford for laparoscopic biopsy and possible palliative bypass of the gastroduodenal area. On July 22, 2016, she had a laparoscopy and was found to have extensive intra-abdominal carcinomatosis. A bypass surgery was not done as Dr. Walls, with whom I spoke with today, indicated that it would not be successful as there was diffuse tumor deposits throughout the bowel and the bypass would not be likely to the heal and would probably break down. She did undergo a biopsy of the omentum which showed a poorly differentiated neoplasm most consistent with adenocarcinoma. It was suggestive of a gastric carcinoma but there was no tumor identified on upper endoscopy. Other possible primaries were esophagus, hepatobiliary and pancreas. The patient was miserable in the hospital. She continued to have vomiting. She was sent [place] for a duodenal stent which was placed. This was not successful in alleviating the vomiting. She has, to the best of my understanding, a tube that runs through the duodenal stent, into the jejunum, allowing for her to have nutrition, and another tube which is more proximal which is draining the stomach. In spite of this, she vomits all of the time. She had a biliary stent placed in addition to the duodenal stent She brings up bilious material and the J-tube is only running at 20 cc per hour. She is having profound episodes of anxiety. She previously took trazodone and Ambien for sleep. She is no longer receiving this. She is having trouble taking orally and this makes her anxious and her sleep patterns have been disrupted not only by the illness but the lack of access to these medications. She has a history of bipolar disorder. PAST SURGICAL HISTORY: 1. Ovarian cyst and right ovary removed, age 16. 2. Surgery involving metatarsals of the feet. 3. Tonsillectomy. 4. Breast augmentation. PAST MEDICAL HISTORY: 1. Chronic diarrhea for three years. 2. Gastroesophageal reflux. 3. Hypertension. 4. Bipolar disorder. 5. Intra-abdominal carcinomatosis from poorly differentiated adenocarcinoma. 6. Placement of duodenal stent with tube passing into the jejunum and I believe into the stomach. 7. Placement of biliary stents which are internal. MEDICATIONS 1. Trazodone 200 p.o. hs. 2. Phenergan. 3. Lasix 20 p.o. b.i.d. 4. Lovenox 40 q12 hours. 5. Protonix. 6. Estradiol. 7. Losartan. 8. Effexor. 9. Dilaudid. 10. Reglan. ALLERGIES CODEINE. REVIEW OF SYSTEMS: Notable for the fact that the patient is miserable. She is vomiting. She cannot sleep. She is anxious. PHYSICAL EXAMINATION: Reveals both acute and chronically ill-appearing female. Every few minutes she begins to wretch. Her abdomen is visibly distended. VITAL SIGNS: Blood pressure 170/80, respiratory rate is 110 afebrile. O2 sat 92%. Head: Normocephalic. Sclera and conjunctivae are normal. No adenopathy. Heart: Regular rhythm. Lungs: Decreased sounds at the bases. Abdomen: Distended and firm without any significant tenderness but clearly very firm. Extremities: +1 edema. Musculoskeletal: No bone pain. Neurologic: Generalized weakness but not focal weakness. LABORATORY FINDINGS Lytes, BUN, creatinine, liver function tests notable for alk phos of 207, bilirubin is 1.4, it was previously elevated and I suspect this is due to the biliary stent. Her albumin is 1.7 and lipase is 1423, hemoglobin is 10, white count 18,000, platelets of 432,000. ASSESSMENT The patient is a 60 year-old female. She is dying of extensive intra-abdominal carcinomatosis from a poorly differentiated adenocarcinoma, most likely arising from either the gallbladder or the biliary tract. I do not feel that she is a candidate for chemotherapy currently and I doubt that she will ever be a candidate. She is deteriorating very rapidly and at this point I believe the most important thing is comfort measures. The idea that she will get better with chemotherapy is not realistic given her performance status, extent of disease, and histology. PLAN: 1. Ativan 0.5 milligrams IV q2 hours p.r.n. 2. Continue pain medications 3. I believe she does not have long to live. I spoke to her about code status. She agrees to no CPR. 4. The management of her symptoms is very difficult. The G-tube, J-tube is not working at least as measured by providing adequate calories and preventing vomiting. She has never been comfortable during the past several weeks. 5. I am consulting palliative care for symptom management. I believe that in the near future she should be transitioned to Hospice care. I have written orders for a palliative care consult, IV Ativan 0.5 milligrams q2 hours p.r.n. and no CPR as per her wishes. Above discussed with her relative Dr. Lorenz who is a radiologist at [facility]. MD CAMILA Mazariegos/JERRY /9:39 PM /8:28 AM AMY
[2016-08-22 09:26] LABS: CORRECTED NUCLEATED RBC 1 /100 WBC (0-0); METAMYELOCYTES 1 % (0-1); MYELOCYTES 2 % (0-0); PLATELET ESTIMATE SMEAR NORMAL (NORMAL); PLATELET MORPHOLOGY NORMAL (NORMAL); POLYS (SEG NEUTROPHILS) 87 % (16-70); SCAN/DIFF FINAL DIFF MANUAL; WBC DIFF SAMPLE 100
[2016-08-22] MEDS: FUROSEMIDE 20 MG TAB PO SCH ×2 (09:30→12:52)
[2016-08-22] MEDS: HYDROmorphone HCL PF 1 MG/ML VIAL IV PUSH SCH ×2 (12:43→15:57)
--- NOTE | 2016-08-22 12:49 | PD.ONC.PN ---
Subjective Subjective Remarks Afebrile overnight. Patient reports continuing to feel nauseated. She also continues to have pain in the epigastrium and she does not feel she has been getting her pain medications on time. Objective Data Date Time Temp Pulse Resp B/P Pulse Ox O2 Delivery O2 Flow Rate FiO2 08/22/16 08:00 96.2 115 28 149/94 97 08/22/16 04:00 97.8 115 18 117/77 93 08/22/16 01:06 19 08/22/16 00:51 19 08/22/16 00:00 98.0 116 19 134/77 92 08/21/16 21:00 116 08/21/16 20:00 97.5 116 22 170/88 92 08/21/16 16:00 97.8 115 20 105/66 93 08/22/16 08/22/16 08/22/16 07:00 15:00 23:00 Output Total 450 ml Balance -450 ml Result Diagram: 08/22/16 0535 08/22/16 0535 Laboratory Results Laboratory Tests Test 08/21/16 08/22/16 16:41 05:35 Urine Color ORANGE Urine Turbidity HAZY Urine pH 5.5 Urine Specific [place] 1.020 Urine Protein 30 mg/dL Urine Glucose (UA) NEG mg/dL Urine Ketones NEG mg/dL Urine Occult Blood NEG Urine Nitrite NEG Urine Bilirubin SMALL Urine Urobilinogen LESS THAN 2.0 MG/DL Urine Leukocyte Esterase TRACE Urine RBC 4 /hpf Urine WBC 4 /hpf Urine Squamous Epithelial 9 /hpf Cells Urine Bacteria MANY /hpf Urine Mucus MOD /lpf Microscopic Urinalysis Comment CULTURE INDICATED White Blood Count 17.8 TH/MM3 Red Blood Count 3.61 MIL/MM3 Hemoglobin 9.2 GM/DL Hematocrit 29.5 % Mean Corpuscular Volume 81.8 FL Mean Corpuscular Hemoglobin 25.5 PG Mean Corpuscular Hemoglobin 31.2 % Concent Red Cell Distribution Width 16.3 % Platelet Count 345 TH/MM3 Mean Platelet Volume 8.1 FL Neutrophils (%) (Auto) 88.3 % Lymphocytes (%) (Auto) 4.8 % Monocytes (%) (Auto) 6.6 % Eosinophils (%) (Auto) 0.2 % Basophils (%) (Auto) 0.1 % Neutrophils # (Auto) 15.7 TH/MM3 Lymphocytes # (Auto) 0.9 TH/MM3 Monocytes # (Auto) 1.2 TH/MM3 Eosinophils # (Auto) 0.0 TH/MM3 Basophils # (Auto) 0.0 TH/MM3 CBC Comment AUTO DIFF Differential Total Cells 100 Counted Neutrophils % (Manual) 87 % Lymphocytes % 4 % Monocytes % 6 % Neutrophils # (Manual) 16.0 TH/MM3 Metamyelocytes 1 % Myelocytes 2 % Nucleated Red Blood Cells 1 /100 WBC Differential Comment FINAL DIFF MANUAL Platelet Estimate NORMAL Platelet Morphology Comment NORMAL Sodium Level 140 MEQ/L Potassium Level 3.3 MEQ/L Chloride Level 103 MEQ/L Carbon Dioxide Level 27.7 MEQ/L Anion Gap 9 MEQ/L Blood Urea Nitrogen 11 MG/DL Creatinine 0.59 MG/DL Estimat Glomerular Filtration 104 ML/MIN Rate Random Glucose 90 MG/DL Calcium Level 8.2 MG/DL Magnesium Level 1.9 MG/DL Lipase 1898 U/L Culture Results Microbiology Date/Time Procedure Status Source Growth 08/21/16 12:18 Aerobic Blood Culture - Preliminary Resulted Blood Peripheral NO GROWTH IN 1 DAY 08/21/16 12:18 Anaerobic Blood Culture - Preliminary Resulted Blood Peripheral NO GROWTH IN 1 DAY 08/21/16 12:25 Aerobic Blood Culture - Preliminary Resulted Blood Peripheral NO GROWTH IN 1 DAY 08/21/16 12:25 Anaerobic Blood Culture - Preliminary Resulted Blood Peripheral NO GROWTH IN 1 DAY 08/21/16 16:41 Urine Culture - Preliminary Resulted Urine Clean Catch IMMATURE GROWTH - REINCUBATE Administered Medications Medications (Trade) Dose Ordered Sig/Mickey Route PRN Reason Start Time Stop Time Status Last Admin Dose Admin Sodium Chloride (NS Flush) 2 ml BID IV FLUSH 08/21/16 09:00 08/22/16 09:11 Ondansetron HCl (Zofran Inj) 4 mg Q6H PRN IVP NAUSEA OR VOMITING 08/20/16 23:45 08/22/16 09:33 Enoxaparin Sodium (Lovenox Inj) 40 mg Q24H SQ 08/21/16 09:00 08/22/16 09:12 Metoclopramide HCl (Reglan Inj) 10 mg Q6HR IV PUSH 08/21/16 00:00 08/22/16 05:34 Zolpidem Tartrate (Ambien) 10 mg HS PRN PO INSOMNIA 08/20/16 23:45 08/21/16 00:16 Heparin Sodium (Porcine) (Heparin Central Flush) 250 units UNSCH PRN IV FLUSH SEE PROTOCOL TABLE 08/21/16 10:45 08/21/16 22:53 Heparin Sodium (Porcine) (Heparin Central Flush) 500 units UNSCH IV FLUSH 08/21/16 10:45 08/21/16 11:23 Promethazine HCl (Phenergan Supp) 25 mg Q4H PRN RECTAL nausea/emesis 08/21/16 12:00 08/21/16 17:12 Objective Remarks GENERAL: Middle aged female, sitting up in bed, emesis basket in lap, vomit on gown. SKIN: Warm and dry. HEAD: Normocephalic. EYES: No injection or drainage. NECK: Supple, trachea midline. CARDIOVASCULAR: Regular rate and rhythm RESPIRATORY: Breath sounds equal bilaterally. No accessory muscle use. GASTROINTESTINAL: Abdomen firm, distended. G-J tube in place. EXTREMITIES: No cyanosis NEUROLOGICAL: No obvious focal deficit. Awake, alert, and oriented x3. 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 admitted with severe nausea and vomiting. Plan 1. Nausea/Vomiting: continue Reglan, Phenergan + Zofran. Patient requested I put her on a clear liquid diet as she wants to be able to drink juices. She understands she will likely just vomit them up but wants to try anyway. 2. Pain: will change to scheduled Dilaudid for better pain control. 3. metastatic cancer: I had an extensive conversation with the patient about her diagnosis and prognosis. She is not a candidate for any type of chemotherapy at this point. I recommended going to the hospice care center. She wants to go home but she is requiring 24 hour care. I recommended she try the care center, hopefully they will be able to get her more comfortable and then if possible discharge her home from there. Her and her asked me to call and speak with their nephew Dr. Keller and I called and spoke with him and discussed the same. also d/w Dr. Bermudez, Dr. Rese, patient's nurse, hospice nurse. Attending Statement The exam, history, and the medical decision-making described in the above note were completed with the assistance of the mid-level provider. I reviewed and agree with the findings presented. I attest that I had a [id number] encounter with the patient on the same day, and personally performed and documented my assessment and findings in the medical record. Still has significant N/V. Continue antiemetic. Schedule the pain meds. patient has decided to go to hospice care center. Emilie Pickard Aug 22, 2016 12:48 Adolph Rees MD Aug 22, 2016 12:51
--- NOTE | 2016-08-22 13:10 | HHI.PR ---
Subjective Remarks Follow-up carcinomatosis. Continues to have nausea and surgical pain. Also has dyspnea on exertion on room air. Did not tolerate MRI. Seen with family. Discussed with RN and oncology PA. Objective Vitals Vital Signs Date Time Temp Pulse Resp B/P Pulse Ox O2 Delivery O2 Flow Rate FiO2 08/22/16 08:00 96.2 115 28 149/94 97 08/22/16 04:00 97.8 115 18 117/77 93 08/22/16 01:06 19 08/22/16 00:51 19 08/22/16 00:00 98.0 116 19 134/77 92 08/21/16 21:00 116 08/21/16 20:00 97.5 116 22 170/88 92 08/21/16 16:00 97.8 115 20 105/66 93 I/O 08/21/16 08/21/16 08/21/16 08/22/16 08/22/16 08/22/16 07:00 15:00 23:00 07:00 15:00 23:00 Intake Total 360 ml 304 ml Output Total 150 ml 450 ml Balance 210 ml 304 ml -450 ml Intake Oral 360 ml Tube Feeding 304 ml Output Urine Total 150 ml Gastric Drainage Total 450 ml # Voids 1 4 # Bowel Movements 0 0 Result Diagram: 08/22/16 0535 08/22/16 0535 Imaging Last Impressions Chest X-Ray 08/21/16 0000 Signed Impressions: Service Date/Time: Sunday, August 21, 2016 10:37 - CONCLUSION: 1. Patchy alveolar disease characteristic of edema or pneumonia. 2. Left-sided effusion and left lower lobe atelectasis Dread Nunez MD Abdomen X-Ray 08/21/16 0000 Signed Impressions: Service Date/Time: Sunday, August 21, 2016 15:33 - CONCLUSION: 1. No evidence of obstruction. Dread Nunez MD Objective Remarks GENERAL: This is a chronically looking ill female in distress secondary to nausea SKIN: No rashes, ecchymoses or lesions. Cool and dry. HEAD: Atraumatic. Normocephalic. No temporal or scalp tenderness. EYES: Pupils equal round and reactive. Extraocular motions intact. No scleral icterus. No injection or drainage. ENT: Nose without bleeding, purulent drainage or septal hematoma. Throat without erythema, tonsillar hypertrophy or exudate. Uvula midline. Airway patent. NECK: Trachea midline. No JVD or lymphadenopathy. Supple, nontender, no meningeal signs. CARDIOVASCULAR: Regular rate and rhythm without murmurs, gallops, or rubs. Port in place. RESPIRATORY: Decreased. Breath sounds equal bilaterally. No wheezes, rales, or rhonchi. GASTROINTESTINAL: Abdomen soft, distended, diffuse positive tenderness palpation. No guarding. J-tube in place showing bilious output. MUSCULOSKELETAL: Bilateral lower extremity pitting edema +2. No joint tenderness , effusion, or edema noted. No calf tenderness. Negative Homans sign bilaterally. NEUROLOGICAL: Awake and alert. Cranial nerves II through XII intact. Motor and sensory grossly within normal limits. Five out of 5 muscle strength in all muscle groups. Normal speech. 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 admitted with severe nausea and vomiting. 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 -Dr. Bermudez consulted. -Continue with pain control with IV Dilaudid since patient stated that this helps. Patient was getting Lortab previously and that will also continue. Intractable emesis -Due to the above. -Patient has been on Phenergan, Zofran and Reglan with no improvement. -will consult GI for assistance. G tube to intermittent suction -Lipase is also elevated. If persistent emesis will make patient nothing by mouth Leukocytosis -Most likely secondary to cancer. -Abnormal UA. Follow-up cultures -Has left pleural effusion. We'll consult IR for possible drainage. Get ultrasound. Patient has a permanent catheter on the right pleural cavity Lower extremity edema -Since this is causing patient discomfort continue Lasix. -Will monitor while patients on medication. Anemia -Most likely anemia of chronic disease. -Stable. No signs of bleeding. -Continue to monitor. Postmenopausal, hypertension, GERD, anxiety -Will resume home medication. DVT prophylaxis -Lovenox. Discharge Planning Patient agrees to meet with hospice meeting set up this afternoon Viet Starks MD Aug 22, 2016 13:10
[2016-08-22] MEDS ORDERED: ZOLPIDEM TARTRATE 10 MG TAB J-TUBE PRN (13:15)
[2016-08-22] MEDS ORDERED: POTASSIUM BICARBONATE 25 MEQ EFFERVESCENT TAB J-TUBE ONE (13:15)
--- NOTE | 2016-08-22 13:27 | HHI.DCPOC ---
Discharge Care Plan Diagnosis: (1) Abdominal carcinomatosis (2) Vomiting and diarrhea Your Health Problems Are: Difficulty with ADL Exercise Tolerance Goals to Promote Your Health * To prevent worsening of your condition and complications * To maintain your health at the optimal level Directions to Meet Your Goals Take your medications as prescribed Follow your dietary instruction Follow activity as directed Keep your appointments as scheduled Take your immunizations and boosters as scheduled If your symptoms worsen call your PCP, if no PCP go to Urgent Care Center or Emergency Room Smoking is Dangerous to Your Health. Avoid second hand smoke Call the 24-hour hour crisis hotline for domestic abuse at Viet Starks MD Aug 22, 2016 13:27
--- NOTE | 2016-08-22 14:36 | HHI.GIFU ---
Subjective Remarks Resting in bed. Continues to have nausea/vomiting small amounts of bilious material. Pain controlled. Was not able to tolerate the MRI yesterday. Pt has decided on hospice, going to meet with them this afternoon (Frances Coto) Objective Vitals I&O Vital Signs Date Time Temp Pulse Resp B/P Pulse Ox O2 Delivery O2 Flow Rate FiO2 08/22/16 08:00 96.2 115 28 149/94 97 08/22/16 04:00 97.8 115 18 117/77 93 08/22/16 01:06 19 08/22/16 00:51 19 08/22/16 00:00 98.0 116 19 134/77 92 08/21/16 21:00 116 08/21/16 20:00 97.5 116 22 170/88 92 08/21/16 16:00 97.8 115 20 105/66 93 I/O 08/21/16 08/21/16 08/21/16 08/22/16 08/22/16 08/22/16 07:00 15:00 23:00 07:00 15:00 23:00 Intake Total 360 ml 304 ml Output Total 150 ml 450 ml Balance 210 ml 304 ml -450 ml Intake Oral 360 ml Tube Feeding 304 ml Output Urine Total 150 ml Gastric Drainage Total 450 ml # Voids 1 4 # Bowel Movements 0 0 Laboratory Laboratory Tests Test 08/21/16 08/22/16 16:41 05:35 Urine Color ORANGE Urine Turbidity HAZY Urine pH 5.5 Urine Specific [place] 1.020 Urine Protein 30 Urine Glucose (UA) NEG Urine Ketones NEG Urine Occult Blood NEG Urine Nitrite NEG Urine Bilirubin SMALL Urine Urobilinogen LESS THAN 2.0 Urine Leukocyte Esterase TRACE Urine RBC 4 Urine WBC 4 Urine Squamous Epithelial 9 Cells Urine Bacteria MANY Urine Mucus MOD Microscopic Urinalysis Comment CULTURE INDICATED White Blood Count 17.8 Red Blood Count 3.61 Hemoglobin 9.2 Hematocrit 29.5 Mean Corpuscular Volume 81.8 Mean Corpuscular Hemoglobin 25.5 Mean Corpuscular Hemoglobin 31.2 Concent Red Cell Distribution Width 16.3 Platelet Count 345 Mean Platelet Volume 8.1 Neutrophils (%) (Auto) 88.3 Lymphocytes (%) (Auto) 4.8 Monocytes (%) (Auto) 6.6 Eosinophils (%) (Auto) 0.2 Basophils (%) (Auto) 0.1 Neutrophils # (Auto) 15.7 Lymphocytes # (Auto) 0.9 Monocytes # (Auto) 1.2 Eosinophils # (Auto) 0.0 Basophils # (Auto) 0.0 CBC Comment AUTO DIFF Differential Total Cells 100 Counted Neutrophils % (Manual) 87 Lymphocytes % 4 Monocytes % 6 Neutrophils # (Manual) 16.0 Metamyelocytes 1 Myelocytes 2 Nucleated Red Blood Cells 1 Differential Comment FINAL DIFF MANUAL Platelet Estimate NORMAL Platelet Morphology Comment NORMAL Sodium Level 140 Potassium Level 3.3 Chloride Level 103 Carbon Dioxide Level 27.7 Anion Gap 9 Blood Urea Nitrogen 11 Creatinine 0.59 Estimat Glomerular Filtration 104 Rate Random Glucose 90 Calcium Level 8.2 Magnesium Level 1.9 Lipase 1898 Date/Time Procedure Status Source Growth 08/21/16 16:41 Urine Culture - Preliminary Resulted Urine Clean Catch IMMATURE GROWTH - REINCUBATE 08/21/16 12:25 Aerobic Blood Culture - Preliminary Resulted Blood Peripheral NO GROWTH IN 1 DAY 08/21/16 12:25 Anaerobic Blood Culture - Preliminary Resulted Blood Peripheral NO GROWTH IN 1 DAY Imaging Last Impressions Chest X-Ray 08/21/16 0000 Signed Impressions: Service Date/Time: Sunday, August 21, 2016 10:37 - CONCLUSION: 1. Patchy alveolar disease characteristic of edema or pneumonia. 2. Left-sided effusion and left lower lobe atelectasis Dread Nunez MD Abdomen X-Ray 08/21/16 0000 Signed Impressions: Service Date/Time: Sunday, August 21, 2016 15:33 - CONCLUSION: 1. No evidence of obstruction. Dread Nunez MD Physical Exam HEENT: Normocephalic; atraumatic; no jaundice. CHEST: CTA, diminished CARDIAC: RRR ABDOMEN: [place], distended, mild tenderness at G/J tube ; no hepatosplenomegaly; bowel sounds are present in all four quadrants. G tube to LIWS- large amount bilious material. EXTREMITIES: BLE edema. SKIN: Normal; no rash; no jaundice. [employer]: Lethargic, generalized weakness. (Frances Coto) Assessment and Plan Plan ASSESSMENT: - Nausea, vomiting in patient with known duodenal stenosis/stricture, carcinomatosis. Pt was found to have extrinsic compression in the area of duodenum with Dr. Garcia as outpatient. She was seen here and found to have possibility of tumor in the upper abdominal area and underwent evaluation with diagnostic laparoscopic BX and biopsy of omental tissue with excision of a small portion in the peritoneum and falciform ligament (07/22/16). SHe had mild ascites and diffuse intra-abdominal carcinomatosis with compression of the duodenum at that time and bypass surgery was not done as there was a concern that if the gastrojejunostomy was done there revealed leak due to the presence of tumor involving the bowel preventing the anastomotic site from healing. Path----> poorly differentiated adenocarcinoma involving the omentum, falciform ligament, and peritoneum. CT scan of the abdomen and pelvis at that time which revealed marked inhomogeneity around the gallbladder fossa with a very indistinct wall and a gallstone present. The CBD was dialted all the way down to the ampulla and there were lymph nodes in the second portion of the duodenum. She was then transferred to [facility] for duodenal stent placement. S/P EGD with duodenal stent placement (08/11/16)---> acquired duodenal stenosis. Prosthesis placed. No specimens collected. The patient reports that she continued to have nausea/vomiting and therefore had EGD with an externally removable PEG J placement (08/17/16)----> clear gastric fluid. Fluid aspiration performed. No specimens collected. Duodenal stents. Normal examined jejunum. An externally removable PEG J placement was successfully completed. The patient tells me that the G/J tube was not really used on the , but TF was started on the and she tolerated this well. She was then transferred back to this facility on 08/20/16, and has been having persistent N/V with small amounts bilious material since arrival back to this facility. Last good bm 4 days ago, has been passing air and liquid since that time. Abdomen X-Ray (08/21/16)----> 1. No evidence of obstruction. MRI was ordered to r/o metastatic disease that could be contributing to her nausea/vomiting. She was not able to tolerate this. J tube is in place and she is receiving TF. G Tube was placed to LIWS to try to decompress stomach to help with her n/v. She is putting out a large amount of bilious material (no TF), but continues to have n/v. She was also started on PPI to try to decrease gastric secretions. - Biliary obstruction. S/P ERCP (08/03/16) at [facility]. ----> malignant duodenal stenosis, a pancreatic duct (with upstream dilation) and distal bile duct stricture (with minimal upstream dilation was found suggesting the possibility of a pancreatic cancer. A localized smooth biliary narrowing was found in the CHD suggesting the possibility of impingement from hilar L and. The stricture was malignant appearing. 2 uncovered metal stents were placed in the common bile duct. Lipase elevated 1898. Yesterday's LFTs were stable. - Leukocytosis. WBC 17.8. Afebrile. Of note, pt with persistent nausea/ vomiting. - Malnutrition. Not tolerating TF at 20cc/hr. Will get KUB to evaluate for obstruction vs. migrated J tube. Of note, she is vomiting bilious material, not TF. - Carcinomatosis. S/P diagnostic laparoscopic BX and biopsy of omental tissue with excision of a small portion in the peritoneum and falciform ligament (07/22/16). Pathology poorly differentiated adenocarcinoma involving the omentum, falciform ligament, and peritoneum. Oncology/Palliative care following. Pt and family has decided on Hospice care and they are to meet with family today. PLAN: - NPO - G tube to LIWS - TF via J tube - Cont. PPI - Monitor labs - Dr. Grubbs- nephjose luis. Would like to be called with updates- . - Pt and family has decided on hospice and she will be transferred to the [facility] - Pt seen and examined by Dr. Cameron and myself and this note is written on his behalf (Frances Coto) Physician Comments Seen and examined with NIVIA, tolerating TF. Hospice consulted. Called Dr. Grubbs and left message. Gi will sign off, reconsult as needed. thank you ( Paul Cameron MD) Frances Coto Aug 22, 2016 14:36 Paul Cameron MD Aug 22, 2016 16:29
--- NOTE | 2016-08-22 16:15 | HHI.DS ---
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 Patient was recently seen here a few weeks ago and was transferred to [facility] for a duodenal stent in which that was unable to be done so a J-tube was placed. Patient stated that they try to advance use feeing tube but was unsuccessful. Patient then transferred here in order to have care closer to home. Per patient 's , Dr. Bermudez wanted to try chemotherapy to see if that would help. Patient's complaining of her legs being swollen causing discomfort in which she is unable to walk. She stated that this occurred over weeks. Denies any calf pain. Patient also stated that she's been having emesis for the past few weeks. She stated that Phenergan or Zofran is not helping her. Patient is on Reglan. Otherwise she has no other complaints. Patient's and nephew are at the bedside. CBC/BMP: 08/22/16 0535 08/22/16 0535 Significant Findings Laboratory Tests Test 08/21/16 08/21/16 08/22/16 05:20 16:41 05:35 White Blood Count 18.9 TH/MM3 17.8 TH/MM3 (4.0-11.0) (4.0-11.0) Red Blood Count 3.81 MIL/MM3 3.61 MIL/MM3 (4.00-5.30) (4.00-5.30) Hemoglobin 10.2 GM/DL 9.2 GM/DL (11.6-15.3) (11.6-15.3) Hematocrit 31.2 % 29.5 % (35.0-46.0) (35.0-46.0) Mean Corpuscular Hemoglobin 26.8 PG 25.5 PG (27.0-34.0) (27.0-34.0) Neutrophils (%) (Auto) 86.5 % 88.3 % (16.0-70.0) (16.0-70.0) Lymphocytes (%) (Auto) 5.2 % 4.8 % (9.0-44.0) (9.0-44.0) Monocytes (%) (Auto) 8.1 % (0.0-8.0) Neutrophils # (Auto) 16.4 TH/MM3 15.7 TH/MM3 (1.8-7.7) (1.8-7.7) Monocytes # (Auto) 1.5 TH/MM3 1.2 TH/MM3 (0-0.9) (0-0.9) Calcium Level 8.2 MG/DL 8.2 MG/DL (8.5-10.1) (8.5-10.1) Total Bilirubin 1.4 MG/DL (0.2-1.0) Alkaline Phosphatase 207 U/L (45-117) Total Protein 6.1 GM/DL (6.4-8.2) Albumin 1.7 GM/DL (3.4-5.0) Lipase 1423 U/L 1898 U/L (73-393) (73-393) Urine Color ORANGE (YELLW/STRAW) Urine Turbidity HAZY (CLEAR) Urine Protein 30 mg/dL (NEG-TRACE) Urine Bilirubin SMALL (NEG) Urine Leukocyte Esterase TRACE (NEG) Urine RBC 4 /hpf (0-3) Urine Bacteria MANY /hpf (NONE) Urine Mucus MOD /lpf (OCC) Mean Corpuscular Hemoglobin 31.2 % Concent (32.0-36.0) Lymphocytes # (Auto) 0.9 TH/MM3 (1.0-4.8) Neutrophils % (Manual) 87 % (16-70) Lymphocytes % 4 % (9-44) Neutrophils # (Manual) 16.0 TH/MM3 (1.8-7.7) Myelocytes 2 % (0-0) Nucleated Red Blood Cells 1 /100 WBC (0-0) Potassium Level 3.3 MEQ/L (3.5-5.1) Imaging Last Impressions Chest X-Ray 08/21/16 0000 Signed Impressions: Service Date/Time: Sunday, August 21, 2016 10:37 - CONCLUSION: 1. Patchy alveolar disease characteristic of edema or pneumonia. 2. Left-sided effusion and left lower lobe atelectasis Dread Nunez MD Abdomen X-Ray 08/21/16 0000 Signed Impressions: Service Date/Time: Sunday, August 21, 2016 15:33 - CONCLUSION: 1. No evidence of obstruction. Dread Nunez MD PE at Discharge GENERAL: This is a chronically looking ill female in distress secondary to nausea SKIN: No rashes, ecchymoses or lesions. Cool and dry. HEAD: Atraumatic. Normocephalic. No temporal or scalp tenderness. EYES: Pupils equal round and reactive. Extraocular motions intact. No scleral icterus. No injection or drainage. ENT: Nose without bleeding, purulent drainage or septal hematoma. Throat without erythema, tonsillar hypertrophy or exudate. Uvula midline. Airway patent. NECK: Trachea midline. No JVD or lymphadenopathy. Supple, nontender, no meningeal signs. CARDIOVASCULAR: Regular rate and rhythm without murmurs, gallops, or rubs. Port in place. RESPIRATORY: Decreased. Breath sounds equal bilaterally. No wheezes, rales, or rhonchi. GASTROINTESTINAL: Abdomen soft, distended, diffuse positive tenderness palpation. No guarding. J-tube in place showing bilious output. MUSCULOSKELETAL: Bilateral lower extremity pitting edema +2. No joint tenderness , effusion, or edema noted. No calf tenderness. Negative Homans sign bilaterally. NEUROLOGICAL: Awake and alert. Cranial nerves II through XII intact. Motor and sensory grossly within normal limits. Five out of 5 muscle strength in all muscle groups. Normal speech. Hospital Course 60y/o female with abdominal carcinomatosis from metastatic cancer of either the gallbladder or biliary system. admitted with severe nausea and vomiting. 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 -Dr. Bermudez consulted. -Continue with pain control with IV Dilaudid since patient stated that this helps. Patient was getting Lortab previously and that will also continue. Intractable emesis -Due to the above. -Patient has been on Phenergan, Zofran and Reglan with no improvement. -will consult GI for assistance. G tube to intermittent suction -Lipase is also elevated. If persistent emesis will make patient nothing by mouth Leukocytosis -Most likely secondary to cancer. -Abnormal UA. Follow-up cultures -Has left pleural effusion. We'll consult IR for possible drainage. Get ultrasound. Patient has a permanent catheter on the right pleural cavity Lower extremity edema -Since this is causing patient discomfort continue Lasix. -Will monitor while patients on medication. Anemia -Most likely anemia of chronic disease. -Stable. No signs of bleeding. -Continue to monitor. Postmenopausal, hypertension, GERD, anxiety -Will resume home medication. DVT prophylaxis -Lovenox. [id number] She has signed up with hospice. 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
[2016-08-22] MEDS ORDERED: FUROSEMIDE 20 MG TAB J-TUBE SCH (18:00)
[2016-08-22] MEDS ORDERED: PROGESTERONE MICRONIZED 200 MG J-TUBE SCH (21:00)
[2016-08-22] MEDS ORDERED: traZODone HCL 100 MG TAB J-TUBE SCH (21:00)
[2016-08-23] MEDS ORDERED: ESTRADIOL 1 MG TAB J-TUBE SCH (09:00)
[2016-08-23] MEDS ORDERED: LOSARTAN 50 MG TAB J-TUBE SCH (09:00)
== END 2016-08-22 17:37 | disposition hospice, inpatient (51) | DRG 436 ==
LOC: HOCA 22:47 → OBSVTOIN 08-21 09:45
PROVIDERS: ADMIT Internal Medicine; ATTEND Internal Medicine
DX: C23 Malignant neoplasm of gallbladder (principal); C80.0 Disseminated malignant neoplasm, unspecified; E46 Unspecified protein-calorie malnutrition; J90 Pleural effusion, not elsewhere classified; K31.5 Obstruction of duodenum; K80.21 Calculus of gallbladder without cholecystitis with obstruction; I10 Essential (primary) hypertension; D63.8 Anemia in other chronic diseases classified elsewhere; D72.829 Elevated white blood cell count, unspecified; K21.9 Gastro-esophageal reflux disease without esophagitis; F31.9 Bipolar disorder, unspecified; F41.9 Anxiety disorder, unspecified; Z51.5 Encounter for palliative care
CPT/HCPCS: 71020; 74000; 80048; 80053; 81001; 83690; 83735; 85007; 85025; 85027; 87040; 87086; J1170; J1642; J1650; J1940; J2060; J2405; J2765; J2997; Q9963